=== PATIENT | male | born 1970 | race Caucasian/White ===

== ENCOUNTER 2024-03-05 20:13 | Inpatient (IN) ==
[2024-03-05 21:00] LABS: Basophils # (auto) 0.14 K/uL (0.00-0.20); Basophils % (auto) 1.5 %; Eosinophils # (auto) 0.51 K/uL (0.00-0.50); Eosinophils % (auto) 5.6 %; Hematocrit (blood only) 43.9 % (42.0-52.0); Hemoglobin 14.9 g/dl (14.0-18.0); Immature Granulocytes # (auto) 0.02 K/uL (0.01-0.20); Immature Granulocytes % (auto) 0.2 %; Lymphocytes # (auto) 2.73 K/uL (1.20-3.40); Mean Corpuscular Hemoglobin 29.4 pg (25.0-34.0); Mean Corpuscular Hgb Conc 33.9 g/dL (32.0-36.0); Mean Corpuscular Volume 86.8 fL (80.0-100.0); Mean Platelet Volume 9.4 fL (9.4-12.4); Monocytes # (auto) 0.74 K/uL (0.11-0.59); Monocytes % (auto) 8.1 %; Neutrophils # (auto) 4.95 K/uL (1.40-6.50); Neutrophils % (auto) 54.6 %; Platelet Count 340 K/uL (130-400); RDW Coefficient of Variation 13.2 % (11.5-14.5); RDW Standard Deviation 41.2 fL (36.4-46.3); Red Blood Count 5.06 M/uL (4.70-6.10); White Blood Count 9.09 K/ul (4.8-10.8)
[2024-03-05 21:15] LABS: Albumin Globulin Ratio 1.7 (0.9-2); Albumin Level 4.1 gm/dl (3.4-5.0); BUN Creatinine Ratio 9.3 (10-20); Bilirubin,Total 0.4 mg/dl (0.2-1.0); Calcium 9.5 mg/dl (8.6-10.3); Creatinine Clr Calc Pharmacy 96.8 ml/min; Est GFR (African American) 114.7 ml/min; Globulin 2.4 gm/dl (2.5-4.0); Potassium 3.9 mmol/L (3.5-5.1); Total Protein 6.5 gm/dl (6.0-8.3)
[2024-03-05 21:20] LABS: Troponin I High Sensitivity 10.4 pg/ml (0-20)
--- NOTE | 2024-03-05 22:05 | Emergency Department Note ---
Impression & Plan Chest pain ED Provider Note CHIEF COMPLAINT: Chest pain x 1 week HISTORY OF PRESENT ILLNESS: This 53-year-old male patient presents to the emergency department via private vehicle for evaluation of chest pain. This has been intermittent but ongoing for about a week. Patient states that the pain today worsened at lunchtime. He states he had mashed potatoes, chicken, corn for lunch with his daughter. He states shortly thereafter, he developed a pressure sensation in the left side of his chest which does radiate into the left arm. He states he feels that food sometimes gets stuck in his chest, but he has not had any difficulty eating or drinking since this started. He was seen by Dr. Lawler a week ago and was started on omeprazole which she does not feel is making much of a difference. 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 He states there have been some instances of chest pain when walking up hills or doing some exertion, but at baseline he feels that he is in decent physical condition. The patient notes that he has not recently been ill. There has been no cough or congestion. He has not taken any OTC medication for his pain. He denies any history of hypertension, hyperlipidemia, heart disease. He denies any known family history of heart disease. REVIEW OF SYSTEMS: A 10 system review of systems was performed with positives and pertinent negatives listed in the history of present illness. All other systems were reviewed and are negative. ALLERGIES: NKDA PHYSICAL EXAM: VITALS: Vitals are noted on the nurse's note and reviewed by myself. Vital signs stable. GENERAL: This is a 53-year-old male, in no acute distress, nondiaphoretic, well- developed well-nourished. SKIN: The skin was without rashes, erythema, edema, or bruising. There is no tenting of the skin. Capillary refill less than 2 seconds. HEAD: Normocephalic atraumatic. EARS: External auditory canals clear, tympanic membranes pearly marino without erythema or effusion bilaterally. No hemotympanum. Negative sawyer sign EYES: Pupils equal round and reactive to light and accommodation. Conjunctivae without injection, sclerae without icterus. Extraocular movements intact. NOSE: Patent, turbinates without inflammation or discharge. No sinus tenderness. MOUTH: Mucous membranes moist. Tonsils are not enlarged. Pharynx without erythema or exudate. Uvula midline. Airway patent. Tongue does not deviate. NECK: Supple without nuchal rigidity. No lymphadenopathy. Cervical spine is nontender. No JVD. HEART: Regular rate and rhythm without murmurs gallops or rubs. LUNGS: Clear to auscultation bilaterally without wheezes, rales or rhonchi. No retractions or accessory muscle use. ABDOMEN: Positive bowel sounds x 4. Soft, nontender, without masses or organomegaly. Louis sign negative. No guarding or rebound tenderness. MUSCULOSKELETAL: No muscle atrophy, erythema, or edema noted. Full range of motion without joint tenderness in all extremities. No tenderness to palpation. Normal gait. Strength 5/5 throughout. NEURO: Patient was alert and oriented to person place and time. Normal sensation to light and sharp touch. Deep tendon reflexes 2+ throughout. No focal neurological deficits. 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 The monitor showed a normal sinus rhythm at a ventricular rate of 61 bpm, per my interpretation. EKG was reviewed by myself and found to be normal sinus rhythm at a rate of 74 beats per minute and per my interpretation reveals no ST elevation or depression. No T wave inversion. No prior EKG available for comparison. EKG completed approximately 2 hours later was without acute changes. Chest x-ray. Findings: A chest x-ray was performed and revealed no pneumothorax, effusion, infiltrate, pulmonary edema, free air under the diaphragm, or wide mediastinum, per my interpretation. EMERGENCY DEPARTMENT COURSE: The patient was seen and evaluated as above. The patient presents for to the emergency department for chest pain. This has been ongoing for about a week. The pain does seem to be worse with exertion, but is present most of the time. Today, he developed the pain after eating lunch. The access was obtained, labs were drawn. Labs were reviewed. Per my interpretation, there was no leukocytosis or anemia. No thrombocytopenia. Renal, hepatic function and electrolytes without significant abnormality. Troponin x 2 negative. Lipase 91. Chest x-ray as above. Per my interpretation, no acute findings. I discussed findings with the patient at bedside. He discussed case with my attending physician. Heart score is 2. Given the patient's complaints of pressure sensation in his chest, worse with exertion, I did recommend admission/observation to further evaluate this chest pain. I do feel the patient would benefit from inpatient care additional studies to rule out cardiac disease. The patient was agreeable with the treatment plan. I discussed the case with Dr. Hopkins, [facility] hospitalist physician. He did agree to see and evaluate the patient for admission. Please see hospitalist dictation regarding ongoing management and care of this patient. Case was discussed with the attending physician. This visit is during a period of high volume and high acuity in the emergency department. I attest that I have personally reviewed the patient medication list. I attest that I have reviewed the patient's blood pressure and it was found to be normal GCS: 15 In the evaluation and treatment of this patient the following differential diagnoses were entertained: Cardiac ischemia, aortic dissection, pulmonary embolism, pneumothorax, pneumonia, pericarditis, myocarditis, esophageal rupture, GERD, cholecystitis, pancreatitis, musculoskeletal, as well as other pathologies. The chart was completed utilizing [employer] Speech voice recognition software. Grammatical errors, random word insertions, pronoun errors, and incomplete sentences are an occasional consequence of this system due to software limitations, ambient noise, and hardware issues. Any formal questions or concerns about the content, text, or information contained within the body of this dictation should be directly addressed to the provider for clarification. Past Med/Surg History Problem List (Updated 03/06/24 @ 02:55 by Mckayla Garza PA-C) Chest pain (Acute) Medical History No pertinent past medical history Social History Smoking Status: Never smoker Feels Safe at Home: Yes Allergies Allergies Allergy/AdvReac Type Severity Reaction Status Date / Time No Known Allergies Allergy Mild Unverified 03/06/24 01:41 Home Meds Home Medications Medication Instructions Recorded Confirmed cholecalciferol (vitamin D3) 25 0 mcg PO DAILY 03/06/24 03/06/24 mcg (1,000 unit) tablet (Vitamin D3) omeprazole 20 mg tablet,delayed 0 mg PO DAILY 03/06/24 03/06/24 release Results & Data (ED) Vital Signs Vital Signs - 24 hr 03/05/24 20:17 03/05/24 20:35 03/05/24 20:36 Temperature 35.9 C L Temperature Source Skin Pulse Rate 81 75 Pulse Rate [Apical] Pulse Rate from SpO2 Sensor Respiratory Rate 16 Respiratory Effort / Characteristics Non-Labored Respiratory Depth Normal Respiratory Pattern Blood Pressure 111/78 Blood Pressure [Right Arm] Blood Pressure Mean 89 Blood Pressure Mean [Right Arm] Pulse Oximetry 96 99 Oxygen Delivery Method Room Air Room Air Sepsis Recent Fever Within 48 Hours No Sepsis New/Unexplained Change in Mental Status No Sepsis Action Taken by Nursing No Action Required 03/05/24 20:42 03/05/24 20:57 03/05/24 21:00 Temperature Temperature Source Pulse Rate 72 71 Pulse Rate [Apical] Pulse Rate from SpO2 Sensor 72 70 Respiratory Rate 20 13 Respiratory Effort / Characteristics Respiratory Depth Respiratory Pattern Blood Pressure 103/68 Blood Pressure [Right Arm] Blood Pressure Mean 74 Blood Pressure Mean [Right Arm] Pulse Oximetry 94 96 Oxygen Delivery Method Sepsis Recent Fever Within 48 Hours Sepsis New/Unexplained Change in Mental Status Sepsis Action Taken by Nursing 03/05/24 21:00 03/05/24 21:09 03/05/24 21:27 Temperature Temperature Source Pulse Rate 70 67 Pulse Rate [Apical] Pulse Rate from SpO2 Sensor 69 68 Respiratory Rate 17 19 Respiratory Effort / Characteristics Respiratory Depth Respiratory Pattern Blood Pressure 103/68 Blood Pressure [Right Arm] Blood Pressure Mean 74 Blood Pressure Mean [Right Arm] Pulse Oximetry 95 94 Oxygen Delivery Method Sepsis Recent Fever Within 48 Hours Sepsis New/Unexplained Change in Mental Status Sepsis Action Taken by Nursing 03/05/24 21:30 03/05/24 21:30 03/05/24 22:12 Temperature Temperature Source Pulse Rate 65 Pulse Rate [Apical] Pulse Rate from SpO2 Sensor Respiratory Rate 11 L Respiratory Effort / Characteristics Respiratory Depth Respiratory Pattern Blood Pressure 96/70 L 96/70 L 122/76 Blood Pressure [Right Arm] Blood Pressure Mean 76 76 91 Blood Pressure Mean [Right Arm] Pulse Oximetry Oxygen Delivery Method Sepsis Recent Fever Within 48 Hours Sepsis New/Unexplained Change in Mental Status Sepsis Action Taken by Nursing 03/06/24 00:00 03/06/24 00:31 03/06/24 02:00 Temperature Temperature Source Pulse Rate 61 Pulse Rate [Apical] 66 61 Pulse Rate from SpO2 Sensor Respiratory Rate 14 12 Respiratory Effort / Characteristics Non-Labored Spontaneous Non-Labored Spontaneous Respiratory Depth Normal Normal Respiratory Pattern Regular Blood Pressure Blood Pressure [Right Arm] 105/69 99/65 L Blood Pressure Mean Blood Pressure Mean [Right Arm] 81 76 Pulse Oximetry 96 96 Oxygen Delivery Method Room Air Room Air Sepsis Recent Fever Within 48 Hours Sepsis New/Unexplained Change in Mental Status Sepsis Action Taken by Nursing Laboratory Data 03/05/24 20:25 03/05/24 20:25 Lab Results 03/05/24 03/05/24 Range/Units 20:25 23:07 WBC 9.09 (4.8-10.8) K/ul RBC 5.06 (4.70-6.10) M/uL Hgb 14.9 (14.0-18.0) g/dl Hct 43.9 (42.0-52.0) % MCV 86.8 (80.0-100.0) fL MCH 29.4 (25.0-34.0) pg MCHC 33.9 (32.0-36.0) g/dL RDW Std Deviation 41.2 (36.4-46.3) fL RDW Coeff of Ana 13.2 (11.5-14.5) % Plt Count 340 (130-400) K/uL MPV 9.4 (9.4-12.4) fL Immature Gran % (Auto) 0.2 % Neut % (Auto) 54.6 % Lymph % (Auto) 30.0 % [place] % (Auto) 8.1 % Eos % (Auto) 5.6 % Baso % (Auto) 1.5 % Neut # (Auto) 4.95 (1.40-6.50) K/uL Lymph # (Auto) 2.73 (1.20-3.40) K/uL [place] # (Auto) 0.74 H (0.11-0.59) K/uL Eos # (Auto) 0.51 H (0.00-0.50) K/uL Baso # (Auto) 0.14 (0.00-0.20) K/uL Immature Gran # (Auto) 0.02 (0.01-0.20) K/uL Sodium 137 (136-145) mmol/L Potassium 3.9 (3.5-5.1) mmol/L Chloride 104 (98-107) mmol/L Carbon Dioxide 28 (21-32) mmol/L Anion Gap 5 (3-11) BUN 8 (6-23) mg/dl Creatinine 0.86 (0.6-1.4) mg/dl Est Cr Clr Drug Dosing 96.8 ml/min Est GFR ( Amer) 114.7 ml/min Est GFR (Non-Af Amer) 99.0 ml/min BUN/Creatinine Ratio 9.3 L (10-20) Glucose 88 (70-99(Fasting)) mg/dl Calcium 9.5 (8.6-10.3) mg/dl Total Bilirubin 0.4 (0.2-1.0) mg/dl AST 12 L (13-39) U/L ALT 11 (7-52) U/L Alkaline Phosphatase 43 (34-104) U/L Troponin I High Sens 10.4 < 2.3 D (0-20) pg/ml Total Protein 6.5 (6.0-8.3) gm/dl Albumin 4.1 (3.4-5.0) gm/dl Globulin 2.4 L (2.5-4.0) gm/dl Albumin/Globulin Ratio 1.7 (0.9-2) Lipase 91 H (11-82) U/L Discharge Plan Visit Data Chief Complaint: Chest Pain Stated Complaint: CHEST HEAVY/PAIN, DOWN LT ARM ED Provider: Tarun Carmona ED Midlevel Provider: Mckayla Garza Discharge Problem: Chest pain Patient Disposition: Admitted As Inpatient Forms [facility] Prescriptions Prescriptions: No Action cholecalciferol (vitamin D3) [Vitamin D3] 25 mcg (1,000 unit) Tablet 0 mcg PO DAILY omeprazole 20 mg Tablet,Delayed Release (Dr/Ec) 0 mg PO DAILY Referrals Referrals: PCP,NO [Primary Care Provider] -
--- NOTE | 2024-03-06 02:29 | History & Physical Report ---
Date of Service March 06, 2024 Assessment & Plan (1) Chest pain: Plan: 53-year-old male with no significant past medical history and not been to doctors for long time presents with chest pain. Patient states he is having chest pain for about a week. Feeling of chest heaviness and some left sided chest pain. Since September he is also having food getting stuck in the esophagus. Today after lunch he felt food got stuck and drank water but still felt food was in the esophagus as he had some back discomfort and since then is having left-sided chest pain and heaviness and was not getting better so he came to the ER today. Currently chest discomfort is better but still there. Denies any shortness of breath. Denies any headache. No fevers. No cough. No runny nose or sore throat. No nausea. No abdominal pain. Normal bowel and bladder movements. Patient states at work in this summer one time when he was climbing a hill felt some chest heaviness but it was only one episode. Currently resting comfortably and hemodynamically stable. Chest pain Chest heaviness and left-sided chest pain Going on for about a week Had episode when he climbed hill at work 2 sets of troponin negative and EKG okay Will follow serial cardiac enzymes and echo N.p.o. Telemetry Will also follow HbA1c and lipid profile as patient not been to doctors for long time Cardiology consult in a.m. for further recommendations Dysphagia Patient says his food getting stuck in his esophagus for some time now IV Pepcid GI consult DVT prophylaxis SCDs Disposition Observation telemetry Full code. History of Present Illness Chief Complaint: Chest pain Primary Care Provider: NO PCP 53-year-old male with no significant past medical history and not been to doctors for long time presents with chest pain. Patient states he is having chest pain for about a week. Feeling of chest heaviness and some left sided chest pain. Since September he is also having food getting stuck in the esophagus. Today after lunch he felt food got stuck and drank water but still felt food was in the esophagus as he had some back discomfort and since then is having left-sided chest pain and heaviness and was not getting better so he came to the ER today. Currently chest discomfort is better but still there. Denies any shortness of breath. Denies any headache. No fevers. No cough. No runny nose or sore throat. No nausea. No abdominal pain. Normal bowel and bladder movements. Patient states at work in this summer one time when he was climbing a hill felt some chest heaviness but it was only one episode. Currently resting comfortably and hemodynamically stable. Past medical history. None as per patient. Past surgical history. None as per patient Social history. No smoking. No alcohol. No drug use as per patient. Family history. No significant family history as per patient. Allergies Allergy/AdvReac Type Severity Reaction Status Date / Time No Known Allergies Allergy Mild Unverified 03/06/24 01:41 Home Medications Medication Instructions Recorded Confirmed Type cholecalciferol (vitamin D3) 25 0 mcg PO DAILY 03/06/24 03/06/24 History mcg (1,000 unit) tablet (Vitamin D3) omeprazole 20 mg tablet,delayed 0 mg PO DAILY 03/06/24 03/06/24 History release Past Med/Surg History Problem List (Updated 03/06/24 @ 02:55 by Mckayla Garza PA-C) Chest pain (Acute) Medical History No pertinent past medical history Social History Smoking Status: Never smoker Hx Alcohol Use: Yes Alcohol type: beer Hx Substance Use: No Preferred Language: [place] Communication Ability: Effective Electronic Publishing Specialist Required: No Beliefs That Will Affect Care: None Current Living Situation: Family Feels Safe at Home: Yes Safety Concerns: Feels Safe At This Time Assistive Devices: Denture - Upper and Glasses Review of Systems Review of Systems: All systems reviewed & are unremarkable except as noted in HPI & below Physical Exam Physical Exam: General- not in distress Head- atraumatic Eyes- PERRL. ENT- oropharynx clear Neck- supple, no JVD. Lungs- clear to auscultation no wheezing or crackles Heart- regular rate and rhythm; no murmur, no gallop. Abdomen- normal bowel sounds, soft, nontender, no distension. Extremities- no pretibial edema, no erythema seen. Neuro- alert, oriented PERRL,no facial palsy; no dysarthria; moves extremities Results & Data Results & Data Vital Signs (Past 12 Hours) Vital Signs Temp Pulse Pulse Resp BP BP Pulse Ox 03/06/24 02:00 61 12 99/65 L 96 03/06/24 00:31 61 03/06/24 00:00 66 14 105/69 96 03/05/24 22:12 65 11 L 122/76 03/05/24 21:30 96/70 L 03/05/24 21:30 96/70 L 03/05/24 21:27 67 19 94 03/05/24 21:09 70 17 95 03/05/24 21:00 103/68 03/05/24 21:00 103/68 03/05/24 20:57 71 13 96 03/05/24 20:42 72 20 94 03/05/24 20:36 99 03/05/24 20:35 75 03/05/24 20:17 35.9 C L 81 16 111/78 96 O2 Del Method 03/06/24 02:00 Room Air 03/06/24 00:31 03/06/24 00:00 Room Air 03/05/24 22:12 03/05/24 21:30 03/05/24 21:30 03/05/24 21:27 03/05/24 21:09 03/05/24 21:00 03/05/24 21:00 03/05/24 20:57 03/05/24 20:42 03/05/24 20:36 Room Air 03/05/24 20:35 03/05/24 20:17 Room Air Diagnostic Findings Laboratory Results WBC 9.09 K/ul (4.8-10.8) 03/05/24 20:25 RBC 5.06 M/uL (4.70-6.10) 03/05/24 20:25 Hgb 14.9 g/dl (14.0-18.0) 03/05/24 20:25 Hct 43.9 % (42.0-52.0) 03/05/24 20:25 MCV 86.8 fL (80.0-100.0) 03/05/24 20:25 MCH 29.4 pg (25.0-34.0) 03/05/24 20:25 MCHC 33.9 g/dL (32.0-36.0) 03/05/24 20:25 RDW Std Deviation 41.2 fL (36.4-46.3) 03/05/24 20:25 RDW Coeff of Ana 13.2 % (11.5-14.5) 03/05/24 20: Plt Count 340 K/uL (130-400) 03/05/24 20: MPV 9.4 fL (9.4-12.4) 03/05/24 20: Immature Gran % (Auto) 0.2 % 03/05/24 20: Neut % (Auto) 54.6 % 03/05/24 20: Lymph % (Auto) 30.0 % 03/05/24 20: [place] % (Auto) 8.1 % 03/05/24 20: Eos % (Auto) 5.6 % 03/05/24: Baso % (Auto) 1.5 % 03/05/24: Neut # (Auto) 4.95 K/uL (1.40-6.50) 03/05/24: Lymph # (Auto) 2.73 K/uL (1.20-3.40) 03/05/24 20: [place] # (Auto) 0.74 K/uL (0.11-0.59) H 03/05/24 20:25 Eos # (Auto) 0.51 K/uL (0.00-0.50) H 03/05/24 20: Baso # (Auto) 0.14 K/uL (0.00-0.20) 03/05/24 20: Immature Gran # (Auto) 0.02 K/uL (0.01-0.20) 03/05/24 20: Sodium 137 mmol/L (136-145) 03/05/24 20: Potassium 3.9 mmol/L (3.5-5.1) 03/05/24 20: Chloride 104 mmol/L (98-107) 03/05/24 20: Carbon Dioxide 28 mmol/L (21-32) 03/05/24 20: Anion Gap 5 (3-11) 03/05/24 20:25 BUN 8 mg/dl (6-23) 03/05/24: Creatinine 0.86 mg/dl (0.6-1.4) 03/05/24: Est Cr Clr Drug Dosing 96.8 ml/min 08/04/24 20:25 Est GFR ( Amer) 114.7 ml/min 03/05/24 20:25 Est GFR (Non-Af Amer) 99.0 ml/min 03/05/24 20:25 BUN/Creatinine Ratio 9.3 (10-20) L 03/05/24 20:25 Glucose 88 mg/dl (70-99(Fasting)) 03/05/24 20:25 Calcium 9.5 mg/dl (8.6-10.3) 03/05/24 20:25 Total Bilirubin 0.4 mg/dl (0.2-1.0) 03/05/24 20:25 AST 12 U/L (13-39) L 03/05/24 20:25 ALT 11 U/L (7-52) 03/05/24 20:25 Alkaline Phosphatase 43 U/L (34-104) 03/05/24 20:25 Troponin I High Sens < 2.3 pg/ml (0-20) D 03/05/24 23:07 Total Protein 6.5 gm/dl (6.0-8.3) 03/05/24 20:25 Albumin 4.1 gm/dl (3.4-5.0) 03/05/24 20:25 Globulin 2.4 gm/dl (2.5-4.0) L 03/05/24 20:25 Albumin/Globulin Ratio 1.7 (0.9-2) 03/05/24 20:25 Lipase 91 U/L (11-82) H 03/05/24 20:25 ECG Additional Comments: ECG normal sinus rhythm rate of 74. No acute ST changes seen. Code Status & VTE Plan VTE Prophylaxis Plan VTE Prophylaxis will be ordered: Yes
[2024-03-06] MEDS ORDERED: NITROGLYCERIN SL 0.4 MG/TAB TAB SL PRN (03:14)
[2024-03-06] MEDS ORDERED: POLYETHYLENE (MIRALAX) 17 GM PACK PO PRN (03:14)
[2024-03-06] MEDS ORDERED: ACETAMINOPHEN 325 MG TAB PO PRN (03:14)
[2024-03-06] MEDS: FAMOTIDINE 20MG IV PUSH 20 MG/5 ML SYR IV STA (04:00)
[2024-03-06] MEDS: SODIUM CHLORIDE 0.9% 1,000 ML IV SCH (04:00)
[2024-03-06 05:13] LABS: Anion Gap 6 (3-11); BUN Creatinine Ratio 9.1 (10-20); Blood Urea Nitrogen 7 mg/dl (6-23); Calcium 9.1 mg/dl (8.6-10.3); Carbon Dioxide 28 mmol/L (21-32); Chloride 105 mmol/L (98-107); Chol HDL Ratio 7.4 (0-5); Cholesterol 253 mg/dl (0-200); Creatinine Clr Calc Pharmacy 108.2 ml/min; Est GFR (African American) 120.1 ml/min; Est GFR (Non-African American) 103.6 ml/min; Glucose 91 mg/dl (70-99(Fasting)); HDL Cholesterol 34 mg/dl; LDL Cholesterol Calculated 159 mg/dl; Magnesium 2.1 mg/dl (1.7-2.4); Potassium 3.9 mmol/L (3.5-5.1); Sodium 139 mmol/L (136-145); Triglycerides 300 mg/dl (0-150); VLDL Cholesterol 60 mg/dl (0-30)
[2024-03-06 05:19] LABS: Troponin I High Sensitivity < 2.3 pg/ml (0-20)
[2024-03-06 05:24] LABS: Basophils # (auto) 0.14 K/uL (0.00-0.20); Basophils % (auto) 1.7 %; Eosinophils # (auto) 0.52 K/uL (0.00-0.50); Eosinophils % (auto) 6.3 %; Hemoglobin 14.5 g/dl (14.0-18.0); Immature Granulocytes # (auto) 0.02 K/uL (0.01-0.20); Immature Granulocytes % (auto) 0.2 %; Lymphocytes # (auto) 2.21 K/uL (1.20-3.40); Lymphocytes % (auto) 26.6 %; Mean Corpuscular Hemoglobin 28.8 pg (25.0-34.0); Mean Corpuscular Hgb Conc 33.7 g/dL (32.0-36.0); Mean Corpuscular Volume 85.5 fL (80.0-100.0); Mean Platelet Volume 9.4 fL (9.4-12.4); Monocytes # (auto) 0.68 K/uL (0.11-0.59); Monocytes % (auto) 8.2 %; Neutrophils # (auto) 4.74 K/uL (1.40-6.50); Platelet Count 293 K/uL (130-400); RDW Coefficient of Variation 13.1 % (11.5-14.5); RDW Standard Deviation 40.7 fL (36.4-46.3); Red Blood Count 5.03 M/uL (4.70-6.10); White Blood Count 8.31 K/ul (4.8-10.8)
--- NOTE | 2024-03-06 07:11 | XRay Report ---
XR chest 1V portable HISTORY: Chest pain, nonspecific COMPARISON: Chest 07/27/2006. FINDINGS: Calcified granuloma within the left lung base. Otherwise, the lungs are clear. The heart re nnamdi top normal in size. No pleural effusions. No pneumothorax. No acute fractures. No evidence for pulmonary edema. IMPRESSION: No acute process. ACT 112: Negative or not required by law. Electronically signed by: Mickey Ceballos M.D. 03/06/2024 7:10 AM
[2024-03-06 07:20] LABS: Estimated Average Glucose 114 mg/dl; Hemoglobin A1C 5.6 % (4.5-5.6)
--- NOTE | 2024-03-06 07:20 | Electrocardiogram Report ---
Test Reason : Blood Pressure : / mmHG Vent. Rate : 074 BPM Atrial Rate : 074 BPM P-R Int : 152 ms QRS Dur : 086 ms QT Int : 354 ms P-R-T Axes : 006 008 -12 degrees QTc Int : 392 ms Normal sinus rhythm Normal ECG No previous ECGs available Confirmed by Camron Calloway ([id number]) on 03/06/2024 7:20:18 AM Referred By: Confirmed By:Stephen Calloway
--- NOTE | 2024-03-06 07:24 | Electrocardiogram Report ---
Test Reason : Blood Pressure : / mmHG Vent. Rate : 065 BPM Atrial Rate : 065 BPM P-R Int : 150 ms QRS Dur : 094 ms QT Int : 382 ms P-R-T Axes : 003 023 006 degrees QTc Int : 397 ms Normal sinus rhythm Normal ECG When compared with ECG of 05-MAR-2024 20:22, (unconfirmed) No significant change was found Confirmed by Camron Calloway ([id number]) on 03/06/2024 7:23:40 AM Referred By: REFERRED SELF Confirmed By:Stephen Calloway
--- NOTE | 2024-03-06 09:22 | Cardiology Consultation ---
Date of Consultation March 06, 2024 Assessment & Plan (1) Dysphagia: (2) Chest pain at rest: (3) Dyslipidemia: Plan 53-year-old male admitted on March 05, 2024, evaluation of chest pain at rest. Discomfort, by history, is atypical, most suggestive of GI etiology. EKG without acute change. High-sensitivity troponin negative. Chest x-ray clear. Telemetry benign. Options of management discussed. Recommend referral for stress testing to evaluate chest discomfort as well as for preoperative evaluation prior to EGD. Supervising Physician Co-Signing Physician Notes Supervising Physician Attestation: I have personally performed a history and physical examination on the patient. I agree with the physician assistant administrator's findings and plan as documented with the following additions. Patient underwent exercise stress echocardiogram. The patient's baseline symptoms of chest pressure at rest did not change with graded exercise. No EKG or echocardiographic evidence of inducible ischemia. Stress test is felt to represent a low risk of underlying hemodynamically significant coronary heart disease. Recommend initiation of atorvastatin for cardiac risk factor optimization. Recommend ongoing evaluation for possible GI explanation of the patient's symptoms. I spent a total of 25 minutes on the date of service in preparation, delivery, and documentation of the care provided to this patient, excluding any time spent in the performance of separately billed services. Douglas Gates, History of Present Illness Reason for Consultation: Chest pain Requesting Physician: Dr. Hopkins Attending Physician: Dr. Jerry MD History of Present Illness Mr. Bart Bingham is a very pleasant 53-year-old male who presented to the [facility] ER on March 05, 2024 for evaluation of chest pain. Patient notes that he has had dysphagia since September 2023. He notes that everything he eats he feels in his chest. Approximately 1 week ago he developed some heaviness in the chest that seemed to also be present down the left axilla area. The pain is constant. No aggravating or alleviating factors identified. The discomfort does not worsen with activity. Approximately 1 week ago he saw Dr. Lawler and was prescribed omeprazole which seem to have may be helped a little bit. This past Wednesday he went out for breakfast and ate sausage which caused extreme discomfort stating "It got the tears rolling. It takes the pleasure out of eating." EKG on presentation revealed normal sinus rhythm at [address]-T segment change. High-sensitivity troponin negative x 3 (10.4, less than 2.3, less than 2.3). Chest x-ray without acute process. ER telemetry benign. Past Medical and Surgical History: Dyslipidemia. Family History: Mother is alive in her 70s previously suffering a TIA. Father is alive in his 70s without cardiac issues. Patient notes having 4 brothers and 3 sisters, all in relatively good health. 1 brother drowned at the age of 18 Social History: Never smoker. No smokeless tobacco. No alcohol. 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 passed in September 2023 at the age of 58 with congestive heart failure, cancer at the age of 17. 2 children, 21-year-old daughter and 18-year-old son both live with him. Allergies Allergy/AdvReac Type Severity Reaction Status Date / Time No Known Allergies Allergy Mild Unverified 03/06/24 01:41 Home Medications Medication Instructions Recorded Confirmed Type cholecalciferol (vitamin D3) 25 0 mcg PO DAILY 03/06/24 03/06/24 History mcg (1,000 unit) tablet (Vitamin D3) omeprazole 20 mg tablet,delayed 0 mg PO DAILY 03/06/24 03/06/24 History release Patient History Medical History No pertinent past medical history Social History Smoking Status: Never smoker Hx Alcohol Use: Yes Alcohol type: beer Hx Substance Use: No Preferred Language: Japanese Communication Ability: Effective 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 HEENT: No history of cataracts, macular degeneration, or glaucoma. No history of amaurosis fugax. Pulmonary: No history of asthma, emphysema, COPD, or sleep apnea. No history of PE. Cardiac: No history of CAD, MS, CHF, arrhythmia, heart murmur, rheumatic fever, or scarlet fever GI/Abd: + Dysphagia since September 2023. +GERD. No melana or hematochezia. No kidney problems. No liver problems. No history of pancreatic issues. Vascular: No history of carotid artery disease, AAA, or lower extremity claudication/PAD. Hematologic: No coagulation disorder, anemia, or abnormal bleeding. Musculoskeletal: Negative. Skin: No rash. Neurologic: No history of TIA/CVA, or seizure disorder. Male : Negative. Endocrine: No history of diabetes mellitus. No thyroid trouble. Complete Review of Systems is as stated above, negative, or noncontributory Physical Exam Physical Exam: General: A&Ox3. NAD. HENT: Normocephalic. Atraumatic. Eyes: PER. Conjunctiva pink, sclera clear. Neck: No carotid bruits. No JVD. No HJR. Heart: RRR. Grade I/ systolic murmur at the LLSB. No rub. No gallop. PMI is nondisplaced. Lungs: Clear to auscultation. Abdomen: +BS. Soft. Nontender. No masses or organomegaly. Extremities: No clubbing, cyanosis, or edema. Limited neurological examination is without focal deficits. Pulses: radial=2/4, posterior tibial=2/4. Results & Data Vital Signs (Past 12 Hours) Vital Signs Pulse Pulse Resp BP BP Pulse Ox Pulse Ox 03/06/24 07:47 66 16 111/67 03/06/24 06:15 63 18 111/67 95 03/06/24 05:00 55 L 16 03/06/24 04:30 60 15 03/06/24 04:02 96 03/06/24 03:30 114/79 03/06/24 03:24 67 24 03/06/24 03:20 116/78 03/06/24 03:20 116/78 03/06/24 03:19 66 14 116/78 96 03/06/24 03:03 64 18 94 03/06/24 03:00 111/75 03/06/24 02:42 60 17 94 03/06/24 02:30 107/69 03/06/24 02:18 67 22 94 03/06/24 02:00 99/65 L 03/06/24 02:00 99/65 L 03/06/24 02:00 99/65 L 03/06/24 02:00 62 16 03/06/24 02:00 61 12 99/65 L 96 03/06/24 01:30 112/76 03/06/24 01:30 112/76 03/06/24 01:21 65 16 03/06/24 01:03 64 16 03/06/24 01:00 116/72 03/06/24 01:00 116/72 03/06/24 01:00 116/72 03/06/24 00:45 62 20 03/06/24 00:31 61 03/06/24 00:30 110/62 03/06/24 00:30 110/62 03/06/24 00:21 61 17 03/06/24 00:09 62 20 93 03/06/24 00:00 66 14 105/69 96 03/05/24 23:30 108/67 03/05/24 23:30 108/67 03/05/24 23:09 65 18 03/05/24 23:00 59 L 16 03/05/24 23:00 112/64 03/05/24 22:12 65 11 L 122/76 03/05/24 21:30 96/70 L 03/05/24 21:30 96/70 L 03/05/24 21:27 67 19 94 O2 Del Method O2 Del Method 03/06/24 07:47 Room Air 03/06/24 06:15 Room Air 03/06/24 05:00 03/06/24 04:30 03/06/24 04:02 Room Air 03/06/24 03:30 03/06/24 03:24 03/06/24 03:20 03/06/24 03:20 03/06/24 03:19 Room Air 03/06/24 03:03 03/06/24 03:00 03/06/24 02:42 03/06/24 02:30 03/06/24 02:18 03/06/24 02:00 03/06/24 02:00 03/06/24 02:00 03/06/24 02:00 03/06/24 02:00 Room Air 03/06/24 01:30 03/06/24 01:30 03/06/24 01:21 03/06/24 01:03 03/06/24 01:00 03/06/24 01:00 03/06/24 01:00 03/06/24 00:45 03/06/24 00:31 03/06/24 00:30 03/06/24 00:30 03/06/24 00:21 03/06/24 00:09 03/06/24 00:00 Room Air 03/05/24 23:30 03/05/24 23:30 03/05/24 23:09 03/05/24 23:00 03/05/24 23:00 03/05/24 22:12 03/05/24 21:30 03/05/24 21:30 03/05/24 21:27 Laboratory Results Cardiac Enzymes 03/05/24 03/05/24 03/06/24 Range/Units 20:25 23:07 04:35 AST 12 L (13-39) U/L Troponin I High Sens 10.4 < 2.3 D < 2.3 (0-20) pg/ml Lipids 03/06/24 Range/Units 04:35 Triglycerides 300 H (0-150) mg/dl Cholesterol 253 H (0-200) mg/dl HDL Cholesterol 34 mg/dl Cholesterol/HDL Ratio 7.4 H (0-5) CBC 03/05/24 03/06/24 Range/Units 20:25 04:35 WBC 9.09 8.31 (4.8-10.8) K/ul RBC 5.06 5.03 (4.70-6.10) M/uL Hgb 14.9 14.5 (14.0-18.0) g/dl Hct 43.9 43.0 (42.0-52.0) % Plt Count 340 293 (130-400) K/uL Neut # (Auto) 4.95 4.74 (1.40-6.50) K/uL Lymph # (Auto) 2.73 2.21 (1.20-3.40) K/uL [place] # (Auto) 0.74 H 0.68 H (0.11-0.59) K/uL Eos # (Auto) 0.51 H 0.52 H (0.00-0.50) K/uL Baso # (Auto) 0.14 0.14 (0.00-0.20) K/uL Comprehensive Metabolic Panel 03/05/24 03/06/24 Range/Units 20:25 04:35 Sodium 137 139 (136-145) mmol/L Potassium 3.9 3.9 (3.5-5.1) mmol/L Chloride 104 105 (98-107) mmol/L Carbon Dioxide 28 28 (21-32) mmol/L BUN 8 7 (6-23) mg/dl Creatinine 0.86 0.77 (0.6-1.4) mg/dl Glucose 88 91 (70-99(Fasting)) mg/dl Calcium 9.5 9.1 (8.6-10.3) mg/dl AST 12 L (13-39) U/L ALT 11 (7-52) U/L Alkaline Phosphatase 43 (34-104) U/L Total Protein 6.5 (6.0-8.3) gm/dl Albumin 4.1 (3.4-5.0) gm/dl Intake and Output 03/05/24 03/06/24 03/06/24 22:59 06:59 14:59 Other: Weight 76.6 kg 76.6 kg Weight Measurement Method Chair Scale Chair Scale
[2024-03-06] MEDS: FAMOTIDINE 20MG IV PUSH 20 MG/5 ML SYR IV SCH (09:31)
[2024-03-06] MEDS: ATORVASTATIN 40 MG TAB PO SCH (10:02)
--- NOTE | 2024-03-06 10:34 | Communication Note ---
Date of Service: March 06, 2024 Evaluated at bedside Symptoms seem predominately with eating, even with water feels as if the fluid gets "caught" and is painful marked by pressure and tightness. Patient reports issues with liquids and solids Denies vomiting or gastritis like symptoms Work up negative to date for ischemic process at this time #Dysphagia #Chest pain, low concern for ACS Cards evaluated--stress testing today GI consulted for possible EGD given symptoms Rest of plan per HP
--- NOTE | 2024-03-06 11:43 | Gastrointestinal Consultation ---
Date of Consultation March 06, 2024 Assessment & Plan (1) Dysphagia: 53 year old male admitted through the ED w/ reports of solids dysphagia and chest pain, cardiac work up including EKG, High-sensitivity troponin and chest x-ray clear, ECHO pending. Pending results of ECHO, GI will consider inpatient EGD evaluation Soft, slippery diet today Can continue Pepcid Please maintain NPO status after midnight for tentative EGD 03/07 I spent a total of 45 minutes on the date of service in review of patient's record, and previously obtained information in person and appropriate medical visit, discussion and education of plan, with patient and/or caregiver, placing orders for tests/referral/procedures as medically necessary and documentation of pertinent clinical information in patient's medical records for their visit today. Supervising Physician Co-Signing Physician Notes 53 year old male without PMH who presents through the ED for evaluation of chest pain and dysphagia. GI was asked to evaluate. Pt was see [place] evaluated, chart reviewed. He notes sensation of solids sticking since September. This has progressively worsened and has now occurred daily with every attempt at oral intake. Suggests he develops chest pain/pressure after sensation of food sticking. + 20 lbs weight loss. stress echo negative. Will proceed with egd in am. NPO p mn. Stick to liquids today. DDX: mass vs stricture vs ring. EGD with biopsy +/- dilation in am. History of Present Illness Reason for Consultation: dysphagia Requesting Physician: Jerry Attending Physician: Barbie Edwards MD History of Present Illness 53 year old male without PMH who presents through the ED for evaluation of chest pain and dysphagia. GI was asked to evaluate. Pt was see [place] evaluated, chart reviewed. He notes sensation of solids sticking since September. This has progressively worsened and has now occurred daily with every attempt at oral intake. Suggests he develops chest pain/pressure after sensation of food sticking. Notes he has sensation of sticking mid sternum, which lasts a few minutes then drops. He suggests with liquid intake, will have painful swallowing but no dysphagia to liquids. Denies reflux/regurgitation. No issues with abd pain, nausea, vomiting. Moving bowels well. He has had about a 10 lb weight loss. No fever, chills, CP, SOB. Was seen by cardiology - EKG without acute change. High-sensitivity troponin negative. Chest x-ray clear. ECHO pending. CBC unremarkable LFTs unremarkable No abd imaging EGD: none Colonoscopy: none Allergies Allergy/AdvReac Type Severity Reaction Status Date / Time No Known Allergies Allergy Mild Unverified 03/06/24 01:41 Home Medications Medication Instructions Recorded Confirmed Type cholecalciferol (vitamin D3) 25 0 mcg PO DAILY 03/06/24 03/06/24 History mcg (1,000 unit) tablet (Vitamin D3) omeprazole 20 mg tablet,delayed 0 mg PO DAILY 03/06/24 03/06/24 History release Patient History Medical History No pertinent past medical history Social History Smoking Status: Never smoker Hx Alcohol Use: Yes Alcohol type: beer Hx Substance Use: No Preferred Language: Honduran Communication Ability: Effective 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 Physical Exam Constitutional: WD/WN, vitals as above Respiratory: normal respiratory effort, lungs clear to auscultation Cardiovascular: RRR, no murmur, no edema Gastrointestinal (Abdomen): normal bowel sounds, soft, nontender, no hepatosplenomegaly Skin: no rashes, warm and dry Results & Data Vital Signs (Past 12 Hours) Vital Signs Pulse Pulse Resp BP BP Pulse Ox Pulse Ox 03/06/24 10:00 80 22 96/64 L 99 03/06/24 09:00 75 23 133/85 97 03/06/24 07:47 66 16 111/67 03/06/24 06:15 63 18 111/67 95 03/06/24 05:00 55 L 16 03/06/24 04:30 60 15 03/06/24 04:02 96 03/06/24 03:30 114/79 03/06/24 03:24 67 24 03/06/24 03:20 116/78 03/06/24 03:20 116/78 03/06/24 03:19 66 14 116/78 96 03/06/24 03:03 64 18 94 03/06/24 03:00 111/75 08/05/24 02:42 60 17 94 03/06/24 02:30 107/69 03/06/24 02:18 67 22 94 03/06/24 02:00 99/65 L 03/06/24 02:00 99/65 L 03/06/24 02:00 99/65 L 03/06/24 02:00 62 16 03/06/24 02:00 61 12 99/65 L 96 03/06/24 01:30 112/76 03/06/24 01:30 112/76 03/06/24 01:21 65 16 03/06/24 01:03 64 16 03/06/24 01:00 116/72 03/06/24 01:00 116/72 03/06/24 01:00 116/72 03/06/24 00:45 62 20 03/06/24 00:31 61 03/06/24 00:30 110/62 03/06/24 00:30 110/62 03/06/24 00:21 61 17 03/06/24 00:09 62 20 93 03/06/24 00:00 66 14 105/69 96 O2 Del Method O2 Del Method 03/06/24 10:00 Room Air 03/06/24 09:00 Room Air 03/06/24 07:47 Room Air 03/06/24 06:15 Room Air 03/06/24 05:00 03/06/24 04:30 03/06/24 04:02 Room Air 03/06/24 03:30 03/06/24 03:24 03/06/24 03:20 03/06/24 03:20 03/06/24 03:19 Room Air 03/06/24 03:03 03/06/24 03:00 03/06/24 02:42 03/06/24 02:30 03/06/24 02:18 03/06/24 02:00 03/06/24 02:00 03/06/24 02:00 03/06/24 02:00 03/06/24 02:00 Room Air 03/06/24 01:30 03/06/24 01:30 03/06/24 01:21 03/06/24 01:03 03/06/24 01:00 03/06/24 01:00 03/06/24 01:00 03/06/24 00:45 03/06/24 00:31 03/06/24 00:30 03/06/24 00:30 03/06/24 00:21 03/06/24 00:09 03/06/24 00:00 Room Air Laboratory Results 03/06/24 03/05/24 03/05/24 Range/Units 04:35 23:07 20:25 WBC 8.31 9.09 (4.8-10.8) K/ul RBC 5.03 5.06 (4.70-6.10) M/uL Hgb 14.5 14.9 (14.0-18.0) g/dl Hct 43.0 43.9 (42.0-52.0) % MCV 85.5 86.8 (80.0-100.0) fL MCH 28.8 29.4 (25.0-34.0) pg MCHC 33.7 33.9 (32.0-36.0) g/dL RDW Std Deviation 40.7 41.2 (36.4-46.3) fL RDW Coeff of Ana 13.1 13.2 (11.5-14.5) % Plt Count 293 340 (130-400) K/uL MPV 9.4 9.4 (9.4-12.4) fL Immature Gran % (Auto) 0.2 0.2 % Neut % (Auto) 57.0 54.6 % Lymph % (Auto) 26.6 30.0 % Bailey % (Auto) 8.2 8.1 % Eos % (Auto) 6.3 5.6 % Baso % (Auto) 1.7 1.5 % Neut # (Auto) 4.74 4.95 (1.40-6.50) K/uL Lymph # (Auto) 2.21 2.73 (1.20-3.40) K/uL [place] # (Auto) 0.68 H 0.74 H (0.11-0.59) K/uL Eos # (Auto) 0.52 H 0.51 H (0.00-0.50) K/uL Baso # (Auto) 0.14 0.14 (0.00-0.20) K/uL Immature Gran # (Auto) 0.02 0.02 (0.01-0.20) K/uL Sodium 139 137 (136-145) mmol/L Potassium 3.9 3.9 (3.5-5.1) mmol/L Chloride 105 104 (98-107) mmol/L Carbon Dioxide 28 28 (21-32) mmol/L Anion Gap 6 5 (3-11) BUN 7 8 (6-23) mg/dl Creatinine 0.77 0.86 (0.6-1.4) mg/dl Est Cr Clr Drug Dosing 108.2 96.8 ml/min Est GFR ( Amer) 120.1 114.7 ml/min Est GFR (Non-Af Amer) 103.6 99.0 ml/min BUN/Creatinine Ratio 9.1 L 9.3 L (10-20) Glucose 91 88 (70-99(Fasting)) mg/dl Estimat Average Glucose 114 mg/dl Hemoglobin A1c 5.6 (4.5-5.6) % Calcium 9.1 9.5 (8.6-10.3) mg/dl Magnesium 2.1 (1.7-2.4) mg/dl Total Bilirubin 0.4 (0.2-1.0) mg/dl AST 12 L (13-39) U/L ALT 11 (7-52) U/L Alkaline Phosphatase 43 (34-104) U/L Troponin I High Sens < 2.3 < 2.3 D 10.4 (0-20) pg/ml Total Protein 6.5 (6.0-8.3) gm/dl Albumin 4.1 (3.4-5.0) gm/dl Globulin 2.4 L (2.5-4.0) gm/dl Albumin/Globulin Ratio 1.7 (0.9-2) Triglycerides 300 H (0-150) mg/dl Cholesterol 253 H (0-200) mg/dl LDL Cholesterol, Calc 159 mg/dl VLDL Cholesterol, Calc 60 H (0-30) mg/dl HDL Cholesterol 34 mg/dl Cholesterol/HDL Ratio 7.4 H (0-5) Lipase 91 H (11-82) U/L PG Care Time/CCT Total # of Minutes Spent Total Time Spent with Patient: Total time spent is greater than 50% in coordination of care (as documented) at patient's floor/unit and/or counseling patient: Coding Level of Care Code 98453 IN/OBS CONSULT LVL 3,45M Diagnoses Dysphagia, unspecified type R13.10 Dysphagia type: unspecified (1) Dysphagia Dysphagia type: unspecified Qualified Code(s): R13.10 - Dysphagia, unspecified
[2024-03-07 06:34] LABS: Hematocrit (blood only) 44.3 % (42.0-52.0); Mean Corpuscular Hemoglobin 28.9 pg (25.0-34.0); Mean Corpuscular Hgb Conc 33.9 g/dL (32.0-36.0); Mean Corpuscular Volume 85.4 fL (80.0-100.0); Mean Platelet Volume 9.1 fL (9.4-12.4); Platelet Count 299 K/uL (130-400); RDW Coefficient of Variation 13.2 % (11.5-14.5); RDW Standard Deviation 41.6 fL (36.4-46.3); Red Blood Count 5.19 M/uL (4.70-6.10); White Blood Count 8.33 K/ul (4.8-10.8)
[2024-03-07 06:52] LABS: Albumin Globulin Ratio 1.4 (0.9-2); Albumin Level 3.9 gm/dl (3.4-5.0); BUN Creatinine Ratio 11.9 (10-20); Bilirubin,Total 0.8 mg/dl (0.2-1.0); Calcium 9.4 mg/dl (8.6-10.3); Creatinine Clr Calc Pharmacy 91.8 ml/min; Est GFR (African American) 115.9 ml/min; Globulin 2.8 gm/dl (2.5-4.0); Magnesium 2.1 mg/dl (1.7-2.4); Phosphorus 3.8 mg/dl (2.5-4.9); Potassium 4.1 mmol/L (3.5-5.1); Total Protein 6.7 gm/dl (6.0-8.3)
--- NOTE | 2024-03-07 09:02 | Gastroenterology Progress Note ---
Date of Service March 07, 2024 Assessment & Plan (1) Dysphagia: Plan: 53 year old male admitted through the ED w/ reports of solids dysphagia and chest pain, cardiac work up including EKG, High-sensitivity troponin and chest x-ray clear. Maintain NPO status for EGD today. We appreciate assistance in the management of any serological abnormality and corrections to include: hemoglobin >7, INR <2, platelets >50,000, potassium levels >3.5 but <5.3, and sodium levels within 5 points of the reference range prior to endoscopic evaluation. Thank you for allowing us to participate in the care of this patient. Please call with any acute changes, questions or concerns. Please see addendum below with additional recommendation from my supervising physician. Admission and Anticipated Discharge Date Admission Date: March 06, 2024 Supervising Physician Co-Signing Physician Notes I personally saw and examined the patient. I have reviewed the chart and agree with the documentation provided by the AIRPLANE NAVIGATOR including discussion about the assessment, treatment and plan. Briefly, plan for egd for solid phase dyspha andrew. Subjective Pt was seen and evaluated, chart reviewed. No acute events noted overnight. Remains NPO for EGD evaluation today. Review of Systems Review of Systems: All other findings negative except as noted in HPI. Physical Exam Constitutional: WD/WN, vitals as above Respiratory: normal respiratory effort, lungs clear to auscultation Cardiovascular: RRR, no murmur, no edema Gastrointestinal (Abdomen): normal bowel sounds, soft, nontender, no hepatosplenomegaly Skin: no rashes, warm and dry Results & Data Results & Data Vital Signs (Past 12 Hours) Vital Signs Temp Pulse Pulse Resp BP Pulse Ox O2 Del Method 03/07/24 07:44 64 03/07/24 07:38 36.4 C L 69 16 116/80 97 Room Air 03/06/24 22:17 36.7 C 71 18 114/76 96 Room Air Laboratory Results 03/07/24 03/06/24 03/06/24 Range/Units 05:42 16:56 12:17 WBC 8.33 (4.8-10.8) K/ul RBC 5.19 (4.70-6.10) M/uL Hgb 15.0 (14.0-18.0) g/dl Hct 44.3 (42.0-52.0) % MCV 85.4 (80.0-100.0) fL MCH 28.9 (25.0-34.0) pg MCHC 33.9 (32.0-36.0) g/dL RDW Std Deviation 41.6 (36.4-46.3) fL RDW Coeff of Ana 13.2 (11.5-14.5) % Plt Count 299 (130-400) K/uL MPV 9.1 L (9.4-12.4) fL Sodium 139 (136-145) mmol/L Potassium 4.1 (3.5-5.1) mmol/L Chloride 104 (98-107) mmol/L Carbon Dioxide 30 (21-32) mmol/L Anion Gap 5 (3-11) BUN 10 (6-23) mg/dl Creatinine 0.84 (0.6-1.4) mg/dl Est Cr Clr Drug Dosing 91.8 ml/min Est GFR ( Amer) 115.9 ml/min Est GFR (Non-Af Amer) 100.0 ml/min BUN/Creatinine Ratio 11.9 (10-20) Glucose 88 (70-99(Fasting)) mg/dl Calcium 9.4 (8.6-10.3) mg/dl Phosphorus 3.8 (2.5-4.9) mg/dl Magnesium 2.1 (1.7-2.4) mg/dl Total Bilirubin 0.8 (0.2-1.0) mg/dl AST 11 L (13-39) U/L ALT 12 (7-52) U/L Alkaline Phosphatase 46 (34-104) U/L Troponin I High Sens < 2.3 < 2.3 (0-20) pg/ml Total Protein 6.7 (6.0-8.3) gm/dl Albumin 3.9 (3.4-5.0) gm/dl Globulin 2.8 (2.5-4.0) gm/dl Albumin/Globulin Ratio 1.4 (0.9-2) PG Care Time/CCT Total # of Minutes Spent Total Time Spent with Patient: Total time spent is greater than 50% in coordination of care (as documented) at patient's floor/unit and/or counseling patient: Coding Level of Care Code None Diagnoses Dysphagia, unspecified type R13.10 Dysphagia type: unspecified (1) Dysphagia Dysphagia type: unspecified Qualified Code(s): R13.10 - Dysphagia, unspecified
--- NOTE | 2024-03-07 09:31 | Hospitalist Progress Note ---
Date of Service March 07, 2024 Assessment & Plan (1) Dysphagia: (2) Chest pain: Plan Bart Bingham is a 53y/o M with no significant past medical history who presented for evaluation secondary to chest pain and dysphagia. Patient reports history of food getting "stuck" in his esophagus when eating. He mentions this occurs both with solids + liquids and has been ongoing since September. Patient states he has pain when swallowing secondary to the food getting "caught." Reports this painful sensation whilst eating is marked by pressure and tightness in his chest. Dysphagia Chest Pain & Heaviness - Low Concern for ACS Cardiac work-up negative thus far, normal exercise stress echocardiogram; Cardiology recommend initiation of atorvastatin for cardiac risk factor optimization. GI saw and evaluated patient on 03/06 - will proceed with EGD today. Can continue IV Pepcid. DVT Prophylaxis: SCDs - For now. Code Status: FULL CODE PCP: NO PCP Disposition: Observation in Med/Surg + Telemetry, plan for patient to undergo EGD today - will follow results. Patient seen in collaboration with Dr. Edwards. Please see addendum. I spent a total of 35 minutes coordinating, documenting, and providing care for this patient excluding time spent in the performance of separately billed services. This included personally reviewing all current laboratories and imaging studies, medical reconciliation, outpatient chart review and discussion with specialists. This chart was completed in part utilizing Speech Voice Recognition Software. Grammatical errors, random word insertions, pronoun errors, and incomplete sentences are an occasional consequence of this system due to software limitations, ambient noise, and hardware issues. Any formal questions or concerns about the content, text, or information contained within the body of this dictation should be directly addressed to the provider for clarification. Admission and Anticipated Discharge Date Admission Date: March 06, 2024 Supervising Physician Co-Signing Physician Notes I have seen and discussed the case with the collaborating advanced practitioner. I agree with the above PN. I have reviewed and confirmed the patients medical history, the findings on physical examination, and the patients diagnosis and treatment plan with Luz MARK and agree with the information documented. Evaluated at bedside asymptomatic at this time, however, NPO exam with lung CTAB, CV RRR, GI NTND #Dysphagia #Chest pain, low concern for ACS Cards evaluated--stress testing 03/06 negative GI EGD today Rest of plan as above I spent a total of 15 minutes coordinating, documenting, and providing care for this patient excluding time spent in the performance of separately billed services. All of the aforementioned completed outside of collaborating with the assigned advanced practitioner for a full treatment plan. I have reviewed the advanced practitioner's documentation, and I agree with, and take responsibility for the plan of care Subjective Patient seen and examined at bedside in room W454-2. He denies any chest pain, SOB, nausea/vomiting or abdominal pain this morning. He has been NPO since midnight in anticipation for EDG today - hopefully will get done early this afternoon. Review of Systems Review of Systems: At least ten systems reviewed and negative, except as noted in the HPI. Physical Exam Physical Exam: General: WD/WN, vitals as above, NAD, sitting up in bed, pleasant, conversing appropriately. A+Ox3, euthymic affect. HEENT: Normocephalic, atraumatic. PERRL, conjunctivae normal, anicteric sclerae. External ear and nose normal, oropharynx normal. Respiratory: Normal respiratory effort, lungs clear to auscultation, no wheeze, rales, rhonchi. No accessory muscle use. Cardiovascular: Regular rate, rhythm, no murmur, normal peripheral pulses, no BLE edema. Vessels: No JVD. Abdomen/GI: Normal bowel sounds, soft, nontender, no hepatosplenomegaly. Extremities/Musculoskeletal: No cyanosis or clubbing, extremities motor strength intact, moves all extremities without issue. Neurologic: PERRL, EOMI, accommodation nl, no face palsy, no dysarthria, CN's II-XI not formally tested but appear grossly intact bilaterally. Skin: No rashes, normal color, warm/dry. Results & Data Results & Data Vital Signs (Past 12 Hours) Vital Signs Temp Pulse Pulse Resp BP Pulse Ox O2 Del Method 03/07/24 07:44 64 03/07/24 07:38 36.4 C L 69 16 116/80 97 Room Air 03/06/24 22:17 36.7 C 71 18 114/76 96 Room Air Laboratory Results Short CBC 03/07/24 Range/Units 05:42 WBC 8.33 (4.8-10.8) K/ul Hgb 15.0 (14.0-18.0) g/dl Hct 44.3 (42.0-52.0) % Plt Count 299 (130-400) K/uL BMP 03/07/24 05:42 Sodium 139 Potassium 4.1 Chloride 104 Carbon Dioxide 30 BUN 10 Creatinine 0.84 Glucose 88 Calcium 9.4 Liver Function 03/07/24 Range/Units 05:42 Total Bilirubin 0.8 (0.2-1.0) mg/dl AST 11 L (13-39) U/L ALT 12 (7-52) U/L Alkaline Phosphatase 46 (34-104) U/L Albumin 3.9 (3.4-5.0) gm/dl Diagnostic Findings Chest X-Ray 03/05/24 20:36 XR chest 1V portable HISTORY: Chest pain, nonspecific COMPARISON: Chest 07/27/2006. FINDINGS: Calcified granuloma within the left lung base. Otherwise, the lungs are clear. The heart remains top normal in size. No pleural effusions. No pneumothorax. No acute fractures. No evidence for pulmonary edema. IMPRESSION: No acute process. ACT 112: Negative or not required by law. Electronically signed by: Mickey Ceballos M.D. 03/06/2024 7:10 AM Medications Administered Atorvastatin Calcium (Atorvastatin 40 Mg Tab) 40 mg PO QAM [facility] Stop: 04/05/24 08:59 Last Admin: 03/07/24 08:28 Dose: Not Given Documented By: Admin: 03/06/24 10:02 Dose: Not Given Documented By: JUAN Famotidine (Pepcid 20mg Iv Push) 20 mg in 5 mls @ 2.5 mls/min IV Q12H OPAL Stop: 04/05/24 08:59 Last Admin: 03/07/24 08:45 Dose: 2.5 mls/min Documented By: Admin: 03/06/24 21:52 Dose: 2.5 mls/min Documented By: Admin: 03/06/24 09:31 Dose: 2.5 mls/min Documented By: JUAN Discontinued Medications Famotidine (Pepcid 20mg Iv Push) 20 mg in 5 mls @ 2.5 mls/min IV NOW STA Stop: 03/06/24 03:15 Last Admin: 03/06/24 04:00 Dose: 2.5 mls/min Documented By: TORY Sodium Chloride (Nss) 1,000 mls @ 75 mls/hr IV .[id number] OPAL Stop: 03/06/24 16:33 Last Infusion: 03/06/24 15:38 Dose: Infused Documented By: Admin: 03/06/24 04:00 Dose: 75 mls/hr Documented By: TORY (1) Dysphagia Dysphagia type: unspecified Qualified Code(s): R13.10 - Dysphagia, unspecified (2) Chest pain Chest pain type: unspecified Qualified Code(s): R07.9 - Chest pain, unspecified
[2024-03-07] MEDS: SODIUM CHLORIDE 0.9% 500 ML IV SCH (12:54)
--- NOTE | 2024-03-07 13:27 | Anesthesiology Consultation ---
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 specialist initiated Consults Requested none ASA ASA2 Proposed Anesthesia Anesthesia Type: MAC Risk / Benefits Reviewed With: PT / POA / Parent / Guardian, Accepts Plan and Informed Consent Obtained History Surgery Operation Date: 03/07/24 16:55 Proposed Procedures p Esophagogastroduodenoscopy Anita Howard MD Height/Weight Height: 5 ft 6 in Weight: 75.8 kg Allergies Allergy/AdvReac Type Severity Reaction Status Date / Time No Known Allergies Allergy Mild Unverified 03/06/24 01:41 Medications Home Medications Medication Instructions Recorded Confirmed Last Taken cholecalciferol (vitamin D3) 25 0 mcg PO DAILY 03/06/24 03/06/24 Unknown mcg (1,000 unit) tablet (Vitamin D3) omeprazole 20 mg tablet,delayed 0 mg PO DAILY 03/06/24 03/06/24 Unknown release Active Medications Generic Name Dose Route Start Last Admin Trade Name Maykelq PRN Reason Stop Dose Admin Atorvastatin Calcium 40 mg 03/06/24 09:00 03/07/24 08:28 Atorvastatin 40 Mg Tab PO 04/05/24 08:59 Not Given QAM OPAL Famotidine 20 mg in 5 mls @ 2.5 mls/min 03/06/24 09:00 03/07/24 08:45 Pepcid 20mg Iv Push IV 04/05/24 08:59 2.5 mls/min Q12H OPAL Administration Sodium Chloride 500 mls @ 15 mls/hr 03/07/24 07:30 03/07/24 12:54 Nss IV 03/08/24 07:29 15 mls/hr .Q24H OPAL Administration NPO Date Last Intake of Fluids: 03/06/24 Time Last Intake of Fluids: 23:00 Date Last Intake of Solids: 03/06/24 Time Last Intake of Solids: 23:00 Past Medical History Medical History No pertinent past medical history Exercise / Class Metabolic Activity 1 > 8 Run/Swim/Ski/Tennis Past Anesthesia History No Hx of Anesthesia Complications (first time) and No Family Hx of Anesthesia Complications History of PONV No Hx of PONV and No Hx of Motion Sickness Social History Smoking Status: Never smoker Hx Alcohol Use: Yes Alcohol type: beer alcohol intake frequency: holidays/special occasions only Hx Substance Use: No Physical Exam Vital Signs Last Vital Signs Temp 36.6 C 03/07/24 12:43 Pulse 76 03/07/24 12:43 Resp 16 03/07/24 12:43 BP 123/83 03/07/24 12:43 Pulse Ox 97 03/07/24 12:43 O2 Del Method Room Air 03/07/24 12:43 Constitutional no acute distress ENMT Mouth: + dentures; no chipped teeth and no loose teeth Thyromental Distance: > or= 3.5 Finger Breadths Mallampati Class: III Neck normal visual inspection and trachea midline; neck extension not limited Respiratory normal respiratory effort; no respiratory distress Auscultation: lungs clear to auscultation bilaterally; no crackles, no rhonchi and no wheezes Cardiovascular Rate/Rhythm: regular rate and regular rhythm Heart Sounds: no gallop, no murmur and no cardiac rub Musculoskeletal Head/Neck/Chest: full ROM of neck Neurologic moves all extremities and awake Psychiatric Orientation: alert and oriented x 3 Testing Laboratory Results 03/07/24 05:42 03/07/24 05:42 Hemoglobin A1c 5.6 % (4.5-5.6) 03/06/24 04:35 Electrocardiogram Date: 03/07/24 Findings: + NSR @ (64) and + no change from (03/05/24) Chest X-Ray Date: 03/05/24 Findings: + NAD Echocardiogram Date: 03/06/24 EF: 55-60 LV Function: normal RWMA: + none Other Findings: + LVH (mild)
--- NOTE | 2024-03-07 15:13 | GI REPORT ---
[facility] Patient: GILMER GRACE : 1970 Sex at : Male Age: 53 Years Procedure: Upper GI endoscopy Date: 03/07/2024 Attending Physician: Bryan Howard MD Referring MD: Referred Self; Saroj Hopkins Indications: - Dysphagia Medications: - Monitored Anesthesia Care Complications: - No immediate complications. Estimated Blood Loss: - Estimated blood loss was minimal. Procedure: - Prior to the procedure, a History and Physical was performed, and patient medications and allergies were reviewed. The patient's tolerance of previous anesthesia was also reviewed. The risks and benefits of the procedure and the sedation options and risks were discussed with the patient. All questions were answered, and informed consent was obtained. Prior Anticoagulants: The patient has taken no anticoagulant or antiplatelet agents [Days Prior to Procedure]. ASA Grade Assessment: III - A patient with severe systemic disease. After reviewing the risks and benefits, the patient was deemed in satisfactory condition to undergo the procedure. - The egd scope was introduced through the mouth and advanced to the third part of the duodenum. - The upper GI endoscopy was accomplished without difficulty. - The patient tolerated the procedure well. Findings: - A 2 cm hiatal hernia was present. - A medium-sized, ulcerating mass with no bleeding and stigmata of recent bleeding was found in the lower third of the esophagus, 30 to 36 cm from the incisors. The mass was partially obstructing and circumferential. The epicenter of the tumor was in the distal esophagus. Biopsies were taken with a cold forceps for histology. Estimated blood loss was minimal. - The entire examined stomach was normal. - The examined duodenum was normal. Impression: - 2 cm hiatal hernia. 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 Biopsied. - Normal stomach. - Normal examined duodenum. Recommendation: - Await pathology results. - Patient needs Chest, abdomen and pelvis for staging. May need esophageal stent vs peg tube for feeding. - Return to referring physician as previously scheduled. Procedure Code(s): - 63835, Esophagogastroduodenoscopy, flexible, transoral; with biopsy, single or multiple Diagnosis Code(s): - R13.10, Dysphagia, unspecified - K44.9, Diaphragmatic hernia without obstruction or gangrene - D49.0, Neoplasm of unspecified behavior of digestive system CPT(R) - 2023 copyright [employer]. All Rights Reserved. The CPT codes, CCI edits and ICD codes generated are intended as suggestions and were generated based on input data. These codes are preliminary and upon logistics team lead review may be revised to meet current compliance and payer requirements. The provider is responsible for the final determination of appropriate codes, and modifiers. Bryan Howard MD This document has been electronically signed. Note Initiated:03/07/2024 Note Completed:03/07/2024 3:12 PM [id number]
--- NOTE | 2024-03-07 15:26 | Anesthesiology Progress Note ---
Date of Service March 07, 2024 Anesthesia Post Procedure Vital Signs Vital Signs: Temp Pulse Pulse Resp BP Pulse Ox O2 Del Method 03/07/24 15:15 71 16 104/79 94 Room Air 03/07/24 15:00 78 16 110/61 94 Room Air 03/07/24 14:45 36.6 C 84 16 116/72 95 Room Air 03/07/24 12:43 36.6 C 76 16 123/83 97 Room Air 03/07/24 10:57 37.2 C 65 17 121/82 96 Room Air 03/07/24 07:44 64 03/07/24 07:38 36.4 C L 69 16 116/80 97 Room Air 03/06/24 22:17 36.7 C 71 18 114/76 96 Room Air 03/06/24 19:32 36.7 C 77 18 123/83 95 Room Air 03/06/24 16:49 36.7 C 67 18 146/81 H 94 Room Air 03/06/24 16:21 74 03/06/24 15:47 36.8 C 74 16 119/78 98 Room Air Transfer of Care Handoff Completed per policy Notes Mental Status: alert / awake / arousable and participated in evaluation Patient Amnestic to Procedure: Yes Nausea / Vomiting: adequately controlled Pain: adequately controlled Airway Patency, RR, SpO2: stable & adequate BP & HR: stable & adequate Hydration State: stable & adequate Anesthetic Complications: no major complications apparent
[2024-03-07] MEDS: PROPOFOL IV EMULSION 10 MG/ML 20 ML VIAL IV ONE (15:40)
[2024-03-07] MEDS: LIDOCAINE 2% 2 ML VIAL/AMP(20MG/ML) INFIL ONE ×2 (15:40)
--- NOTE | 2024-03-07 17:26 | Electrocardiogram Report ---
Test Reason : Blood Pressure : */* mmHG Vent. Rate : 64 BPM Atrial Rate : 64 BPM P-R Int : 170 ms QRS Dur : 100 ms QT Int : 398 ms P-R-T Axes : 52 42 10 degrees QTcB Int : 410 ms Normal sinus rhythm Normal ECG When compared with ECG of 05-Mar-2024 22:31, No significant change was found Confirmed by Camron Calloway ([id number]) on 03/07/2024 5:26:21 PM Referred By: REFERRED SELF Confirmed By: Camron Calloway
[2024-03-07] MEDS: OPTIRAY 320 100ml IV ONE (17:54)
--- NOTE | 2024-03-07 20:00 | CT Scan Report ---
CT chest diagnostic w con CLINICAL HISTORY: esophageal mass, staging CT CAP TECHNIQUE: Multidetector row helical CT of the chest was performed with intravenous contrast. Coronal and sagittal reformations were obtained. Automated dose lowering techniques and/or adjustment accord ing to patient size were utilized for this exam. CT DOSE: 1803.73 mGy.cm Comparison: Comparison is made to chest radiograph 03/05/2024 FINDINGS: Lungs and pleura: Atelectasis versus scarring is seen in the dependent portions of the lungs. Heart and pericardium: Heart size is normal. No pericardial effusion. Vessels: Unremarkable. . Mediastinum and barbara: Scattered partially calcified lymph nodes are seen. There is thickening of the left side of the distal esophagus. Paraesophageal lymph nodes measure up to 8 mm. Chest wall and lower neck: Unremarkable. Abdomen: For findings below the diaphragm, please refer to CT of the abdomen dated the same. Bones: Degenerative changes in the thoracic spine. IMPRESSION: Distal esophageal mass is seen with subcentimeter paraesophageal lymph nodes. No distant metastases a re seen in the chest. ACT 112: Negative or not required by law. Electronically signed by: Marty Bradley M.D. 03/07/2024 7:58 PM
--- NOTE | 2024-03-07 20:08 | CT Scan Report ---
CT abd pelvis oral and IV con CLINICAL HISTORY: esophageal mass, staging CT CAP TECHNIQUE: Helical axial images of the abdomen and pelvis were obtained and displayed. Automated dose lowering techniques and/or adjustment according to patient size were utilized for this exam. This e xam was performed with intravenous contrast. COMPARISON: None available at the time of this dictation. FINDINGS: Lower chest: For findings above the diaphragm, please see CT chest performed same day. Liver: Unremarkable. No focal lesions are seen. Gallbladder and biliary tree: Cholelithiasis is seen without evidence of cholecystitis. No intra- or extrahepatic biliary ductal dilation. Pancreas: Unremarkable, no focal lesions. Spleen: Splenic cysts are seen. Splenules are noted. Adrenals: Unremarkable. Kidneys and ureters: Renal cysts are seen. Bladder: Unremarkable. Reproductive organs: Unremarkable. Bowel: Diverticulosis is seen without diverticulitis. The appendix is normal. There is a small hiatal hernia. Lymph nodes Retroperitoneal: Multiple lymph nodes are seen near the gastroesophageal junction measuring up to 12 mm in diameter. Retroperitoneal and anne hepatis nodes are nonenlarged. Pelvic: Unremarkable. Mesenteric: Unremarkable. Peritoneum: Normal. Vessels: Unremarkable. Abdominal wall: Unremarkable. Bones: Unremarkable. IMPRESSION: 1. Multiple gastroesophageal junction lymph nodes are enlarged measuring up to 12 mm. Findings are c oncerning for metastatic foci of esophageal cancer. 2. Cholelithiasis without cholecystitis. 3. Diverticulosis without diverticulitis. 4. Additional findings as above. ACT 112: Negative or not required by law. Electronically signed by: Marty Bradley M.D. 03/07/2024 8:06 PM
[2024-03-08 06:39] LABS: Hematocrit (blood only) 44.4 % (42.0-52.0); Hemoglobin 15.1 g/dl (14.0-18.0); Mean Corpuscular Volume 85.2 fL (80.0-100.0); Mean Platelet Volume 9.3 fL (9.4-12.4); Platelet Count 328 K/uL (130-400); RDW Coefficient of Variation 13.2 % (11.5-14.5); RDW Standard Deviation 41.1 fL (36.4-46.3); Red Blood Count 5.21 M/uL (4.70-6.10)
[2024-03-08 07:02] LABS: Albumin Globulin Ratio 1.4 (0.9-2); BUN Creatinine Ratio 14.3 (10-20); Bilirubin,Total 0.6 mg/dl (0.2-1.0); Calcium 9.6 mg/dl (8.6-10.3); Creatinine Clr Calc Pharmacy 84.7 ml/min; Est GFR (African American) 111.1 ml/min; Est GFR (Non-African American) 95.9 ml/min; Globulin 2.8 gm/dl (2.5-4.0); Magnesium 2.2 mg/dl (1.7-2.4); Potassium 4.3 mmol/L (3.5-5.1); Total Protein 6.8 gm/dl (6.0-8.3)
--- NOTE | 2024-03-08 07:16 | Hospitalist Progress Note ---
<Statement entered by Jose Antonio Roca DO - 03/08/24 13:41> I have seen and examined the patient and have discussed the case with the provider above. I have reviewed the advanced practitioner's documentation, and I agree with, and take responsibility for that plan of care. 12 minutes spent at bedside. Daughter and son-in-law at bedside. Patient aware of his suspected diagnosis, working through decision making and working through what his overall goals of care may be and how he would want to pursue further workup. Hematology/oncology consult pending Recommending continuing with just a full liquid diet. Anticipate discharge within next 24 hours with outpatient follow-up Pathology pending from EGD biopsies Further plan of care as outlined below Date of Service March 08, 2024 Assessment & Plan (1) Dysphagia: (2) Esophageal mass: Plan Bart Bingham is a 53y/o M with no significant past medical history who presented for evaluation secondary to chest pain and dysphagia. Patient reports history of food getting "stuck" in his esophagus when eating. He mentions this occurs both with solids + liquids and has been ongoing since September. Patient states he has pain when swallowing secondary to the food getting "caught." Reports this painful sensation whilst eating is marked by pressure and tightness in his chest. Dysphagia Esophageal Mass, C/F Esophageal Cancer [? Metastatic] GI was consulted to evaluate the patient & recommended EGD for further evaluation. Patient underwent EGD on 03/07 that revealed the following findings: i. A 2cm hiatal hernia. ii. 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 Biopsy was taken during EGD, currently awaiting pathology results - following closely. Recommendation from GI was to obtain a CTAP for staging; Patient may require an esophageal stent vs. peg tube for feeding as per GI. Patient is tolerating full liquid diet at this time - will continue. Staging CTAP w/ contrast performed 03/07 revealed the following findings: i. Multiple enlarged gastroesophageal junction lymph nodes measuring up to 12mm. ii. Findings are concerning for metastatic foci of esophageal cancer. Chest CT w/ contrast performed 03/07 revealed the following findings: i. Distal esophageal mass with subcentimeter paraesophageal lymph nodes measuring up to 8mm. ii. No distant metastases seen within the chest. Spoke with Dr. Price via [employer] to make him aware of the patient (03/08) - oncology consult placed. He will be over to see the patient today. Patient is aware that Dr. Price will be over to meet with him. Chest Pain & Heaviness - Low Concern for ACS Cardiac work-up negative thus far, normal exercise stress echocardiogram. Cardiology recommend initiation of atorvastatin for cardiac risk factor optimization. DVT Prophylaxis: SCDs - For now. Code Status: FULL CODE PCP: NO PCP * Patient is a member of the [employer]. Upon discussion with the patient on 03/07, he declined insurance coverage. Patient reports that the [employer] and the [employer] he belongs to will assist in covering his medical costs. Case management is aware of the situation. Disposition: Admitted in PCU/Telemetry Patient seen in collaboration with Dr. Roca. Please see addendum. I spent a total of 50 minutes coordinating, documenting, and providing care for this patient excluding time spent in the performance of separately billed services. This included personally reviewing all current laboratories and imaging studies, medical reconciliation, outpatient chart review and discussion with specialists. This chart was completed in part utilizing Speech Voice Recognition Software. Grammatical errors, random word insertions, pronoun errors, and incomplete sentences are an occasional consequence of this system due to software limitations, ambient noise, and hardware issues. Any formal questions or concerns about the content, text, or information contained within the body of this dictation should be directly addressed to the provider for clarification. Admission and Anticipated Discharge Date Admission Date: March 06, 2024 Subjective Patient seen and examined at bedside in room W454-2. Made patient aware of EGD and staging CTAP findings. Surgical pathology still pending - made patient aware of this as well. Endorses that he is tolerating liquid/full liquid diet with some occasional discomfort whilst swallowing. Patient is eager to get home as soon as he can. I spoke with Dr. Price via [employer] - he will be over to see the patient today. Made patient aware that Dr. Price would be over to see him to discuss the possible treatment options moving forward given high suspicion for cancer. Review of Systems Review of Systems: At least ten systems reviewed and negative, except as noted in the HPI. Physical Exam Physical Exam: General: WD/WN, vitals as above, NAD, sitting up in bed, very pleasant, conversing appropriately. A+Ox3, euthymic affect. HEENT: Normocephalic, atraumatic. PERRL, conjunctivae normal, anicteric sclerae. External ear and nose normal, oropharynx normal. Respiratory: Normal respiratory effort, lungs clear to auscultation, no wheeze, rales, rhonchi. No accessory muscle use. Cardiovascular: Regular rate, rhythm, no murmur, normal peripheral pulses, no BLE edema. Vessels: No JVD. Abdomen/GI: Normal bowel sounds, soft, nontender, no hepatosplenomegaly. Extremities/Musculoskeletal: No cyanosis or clubbing, extremity motor strength intact, moves all extremities without issue. Neurologic: EOMI, accommodation nl, no face palsy, no dysarthria, CN's II-XI not formally tested but appear grossly intact bilaterally. Skin: No rashes, normal color, warm/dry. Results & Data Results & Data Vital Signs (Past 12 Hours) Vital Signs Temp Pulse Pulse Resp BP Pulse Ox O2 Del Method 03/08/24 05:49 36.7 C 63 18 109/73 95 Room Air 03/08/24 04:00 03/07/24 23:34 36.7 C 74 18 118/74 96 Room Air 03/07/24 23:05 75 03/07/24 19:46 37.1 C 80 18 121/85 95 Room Air O2 Del Method 03/08/24 05:49 03/08/24 04:00 Room Air 03/07/24 23:34 03/07/24 23:05 03/07/24 19:46 Laboratory Results Short CBC 03/08/24 Range/Units 05:42 WBC 8.40 (4.8-10.8) K/ul Hgb 15.1 (14.0-18.0) g/dl Hct 44.4 (42.0-52.0) % Plt Count 328 (130-400) K/uL BMP 03/08/24 05:42 Sodium 139 Potassium 4.3 Chloride 104 Carbon Dioxide 28 BUN 13 Creatinine 0.91 Glucose 93 Calcium 9.6 Liver Function 03/08/24 Range/Units 05:42 Total Bilirubin 0.6 (0.2-1.0) mg/dl AST 12 L (13-39) U/L ALT 13 (7-52) U/L Alkaline Phosphatase 49 (34-104) U/L Albumin 4.0 (3.4-5.0) gm/dl Diagnostic Findings Chest X-Ray 03/05/24 20:36 XR chest 1V portable HISTORY: Chest pain, nonspecific COMPARISON: Chest 07/27/2006. FINDINGS: Calcified granuloma within the left lung base. Otherwise, the lungs are clear. The heart remains top normal in size. No pleural effusions. No pneumothorax. No acute fractures. No evidence for pulmonary edema. IMPRESSION: No acute process. ACT 112: Negative or not required by law. Electronically signed by: Mickey Ceballos M.D. 03/06/2024 7:10 AM Abdomen/Pelvis CT 03/07/24 14:48 CT abd pelvis oral and IV con CLINICAL HISTORY: esophageal mass, staging CT CAP TECHNIQUE: Helical axial images of the abdomen and pelvis were obtained and d isplayed. Automated dose lowering techniques and/or adjustment according to patient size were utilized for this exam. This exam was performed with intravenous contrast. COMPARISON: None available at the time of this dictation. FINDINGS: Lower chest: For findings above the diaphragm, please see CT chest performed same day. Liver: Unremarkable. No focal lesions are seen. Gallbladder and biliary tree: Cholelithiasis is seen without evidence of cholecystitis. No intra- or extrahepatic biliary ductal dilation. Pancreas: Unremarkable, no focal lesions. Spleen: Splenic cysts are seen. Splenules are noted. Adrenals: Unremarkable. Kidneys and ureters: Renal cysts are seen. Bladder: Unremarkable. Reproductive organs: Unremarkable. Bowel: Diverticulosis is seen without diverticulitis. The appendix is normal. There is a small hiatal hernia. Lymph nodes Retroperitoneal: Multiple lymph nodes are seen near the gastroesophageal junction measuring up to 12 mm in diameter. Retroperitoneal and anne hepatis nodes are nonenlarged. Pelvic: Unremarkable. Mesenteric: Unremarkable. Peritoneum: Normal. Vessels: Unremarkable. Abdominal wall: Unremarkable. Bones: Unremarkable. IMPRESSION: 1. Multiple gastroesophageal junction lymph nodes are enlarged measuring up to 12 mm. Findings are concerning for metastatic foci of esophageal cancer. 2. Cholelithiasis without cholecystitis. 3. Diverticulosis without diverticulitis. 4. Additional findings as above. ACT 112: Negative or not required by law. Electronically signed by: Marty Bradley M.D. 03/07/2024 8:[address] 03/07/24 14:48 CT chest diagnostic w con CLINICAL HISTORY: esophageal mass, staging CT CAP TECHNIQUE: Multidetector row helical CT of the chest was performed with intravenous contrast. Coronal and sagittal reformations were obtained. Automated dose lowering techniques and/or adjustment according to patient size were utilized for this exam. CT DOSE: 1803.73 mGy.cm Comparison: Comparison is made to chest radiograph 03/05/2024 FINDINGS: Lungs and pleura: Atelectasis versus scarring is seen in the dependent portions of the lungs. Heart and pericardium: Heart size is normal. No pericardial effusion. Vessels: Unremarkable. . Mediastinum and barbara: Scattered partially calcified lymph nodes are seen. There is thickening of the left side of the distal esophagus. Paraesophageal lymph nodes measure up to 8 mm. Chest wall and lower neck: Unremarkable. Abdomen: For findings below the diaphragm, please refer to CT of the abdomen dated the same. Bones: Degenerative changes in the thoracic spine. IMPRESSION: Distal esophageal mass is seen with subcentimeter paraesophageal lymph nodes. No distant metastases are seen in the chest. ACT 112: Negative or not required by law. Electronically signed by: Marty Bradley M.D. 03/07/2024 7:58 PM Medications Administered Atorvastatin Calcium (Atorvastatin 40 Mg Tab) 40 mg PO QAM OPAL Stop: 04/05/24 08:59 Last Admin: 03/07/24 08:28 Dose: Not Given Documented By: Admin: 03/06/24 10:02 Dose: Not Given Documented By: JUAN Famotidine (Pepcid 20mg Iv Push) 20 mg in 5 mls @ 2.5 mls/min IV Q12H OPAL Stop: 04/05/24 08:59 Last Admin: 03/07/24 20:40 Dose: 2.5 mls/min Documented By: Admin: 03/07/24 08:45 Dose: 2.5 mls/min Documented By: Admin: 03/06/24 21:52 Dose: 2.5 mls/min Documented By: Admin: 03/06/24 09:31 Dose: 2.5 mls/min Documented By: JUAN Sodium Chloride (Nss) 500 mls @ 15 mls/hr IV .Q24H OPAL Stop: 03/08/24 07:29 Last Infusion: 03/07/24 15:40 Dose: Infused Documented By: Admin: 03/07/24 12:54 Dose: 15 mls/hr Documented By: AMANDA Discontinued Medications Famotidine (Pepcid 20mg Iv Push) 20 mg in 5 mls @ 2.5 mls/min IV NOW STA Stop: 03/06/24 03:15 Last Admin: 03/06/24 04:00 Dose: 2.5 mls/min Documented By: TORY Sodium Chloride (Nss) 1,000 mls @ 75 mls/hr IV .[id number] OPAL Stop: 03/06/24 16:33 Last Infusion: 03/06/24 15:38 Dose: Infused Documented By: Admin: 03/06/24 04:00 Dose: 75 mls/hr Documented By: TORY Ioversol (Optiray 320 100ml) 90 ml IV ONCE ONE Stop: 03/07/24 17:54 Last Admin: 03/07/24 17:54 Dose: 90 ml Documented By: DOMO Lidocaine HCl (Lidocaine 2% 2 Ml Vial/Amp(20mg/Ml)) Confirm Administered Dose 2 ml INFIL .STK-MED ONE Stop: 03/07/24 14:14 Last Admin: 03/07/24 15:40 Dose: Not Given Documented By: FEDERICO Lidocaine HCl (Lidocaine 2% 2 Ml Vial/Amp(20mg/Ml)) Confirm Administered Dose 2 ml INFIL .STK-MED ONE Stop: 03/07/24 14:31 Last Admin: 03/07/24 15:40 Dose: Not Given Documented By: FEDERICO Propofol (Propofol Iv Emulsion 10 Mg/Ml 20 Ml Vial) Confirm Administered Dose 200 mg IV .STK-MED ONE Stop: 03/07/24 14:14 Last Admin: 03/07/24 15:40 Dose: Not Given Documented By: FEDERICO (1) Dysphagia Dysphagia type: unspecified Qualified Code(s): R13.10 - Dysphagia, unspecified
--- NOTE | 2024-03-08 10:45 | Gastroenterology Progress Note ---
Date of Service March 08, 2024 Assessment & Plan (1) Dysphagia: Plan: 53 year old male admitted through the ED w/ reports of solids dysphagia and chest pain, cardiac work up including EKG, High-sensitivity troponin and chest x-ray, stress echo negative. Unfortunately, EGD on 03/07/24 revealed a partially obstructing, likely malignant esophageal tumor in the lower third of the esophagus. Biopsies are pending, CT CAP reveal multiple gastroesophageal junction lymph nodes are enlarged measuring up to 12 mm but no distant metastases are seen in the chest. Follow esophageal biopsies Full liquid diet as tolerated Encouraged boost/ensure protein supplementation Oncology evaluation Expedited outpatient thoracic medicine evaluation will need to be arranged by the hospitalist service Reviewed worrisome signs of symptoms of impaction and GI bleeding and to seek immediate ER evaluation if these conditions were to develop in the interim I spent a total of 40 minutes on the date of service in review of patient's record, and previously obtained information in person and appropriate medical visit, discussion and education of plan, with patient and/or caregiver, placing orders for tests/referral/procedures as medically necessary and documentation of pertinent clinical information in patient's medical records for their visit today.Thank you for allowing us to participate in the care of this patient. Please call with any acute changes, questions or concerns. Please see addendum below with additional recommendation from my supervising physician. Admission and Anticipated Discharge Date Admission Date: March 06, 2024 Supervising Physician Co-Signing Physician Notes I personally saw and examined the patient. I have reviewed the chart and agree with the documentation provided by the [employer] OPERATOR including discussion about the assessment, treatment and plan. CT scan: Multiple gastroesophageal junction lymph nodes are enlarged measuring up to 12 mm. Findings are concerning for metastatic foci of esophageal cancer.Cholelithiasis without cholecystitis. Pathology is still pending. Needs oncology and cardiothoracic input. Outpt EUS. For his nutrition, liquid diet for now. Suggest peg tube > stent if surgery not an option upfront. Subjective Pt was seen and evaluated, chart reviewed. Reviewed the EGD findings, CT CAP findings. Questions answered. Endorses tolerating liquid/full liquid diet but occasional discomfort with full liquid diet. No impactions on liquid/full liquid diet. Denies nausea/vomiting. Esophageal mass bx: pending EGD 2023: A 2 cm hiatal hernia was present. - A medium-sized, ulcerating mass with no bleeding and stigmata of recent bleeding was found in the lower third of the esophagus, 30 to 36 cm from the incisors. The mass was partially obstructing and circumferential. The epicenter of the tumor was in the distal esophagus. Biopsies were taken with a cold forceps for histology. Estimated blood loss was minimal. - The entire examined stomach was normal. - The examined duodenum was normal. CT Chest 2023: Distal esophageal mass is seen with subcentimeter paraesophageal lymph nodes. No distant metastases are seen in the chest. CT ABD/Pelvis 2023: Multiple gastroesophageal junction lymph nodes are enlarged measuring up to 12 mm. Findings are concerning for metastatic foci of esophageal cancer.Cholelithiasis without cholecystitis. Diverticulosis without diverticulitis. Additional findings as above. Review of Systems Review of Systems: All other findings negative except as noted in HPI. Physical Exam Constitutional: WD/WN, vitals as above Respiratory: normal respiratory effort, lungs clear to auscultation Cardiovascular: RRR, no murmur, no edema Gastrointestinal (Abdomen): normal bowel sounds, soft, nontender, no hepatosplenomegaly Skin: no rashes, warm and dry Results & Data Results & Data Vital Signs (Past 12 Hours) Vital Signs Temp Pulse Pulse Resp BP BP Pulse Ox 03/08/24 07:48 36.7 C 69 16 133/84 96 03/08/24 05:49 36.7 C 63 18 109/73 95 03/08/24 04:00 03/07/24 23:34 36.7 C 74 18 118/74 96 03/07/24 23:05 75 O2 Del Method O2 Del Method 03/08/24 07:48 Room Air 03/08/24 05:49 Room Air 03/08/24 04:00 Room Air 03/07/24 23:34 Room Air 03/07/24 23:05 Laboratory Results 03/08/24 Range/Units 05:42 WBC 8.40 (4.8-10.8) K/ul RBC 5.21 (4.70-6.10) M/uL Hgb 15.1 (14.0-18.0) g/dl Hct 44.4 (42.0-52.0) % MCV 85.2 (80.0-100.0) fL MCH 29.0 (25.0-34.0) pg MCHC 34.0 (32.0-36.0) g/dL RDW Std Deviation 41.1 (36.4-46.3) fL RDW Coeff of Ana 13.2 (11.5-14.5) % Plt Count 328 (130-400) K/uL MPV 9.3 L (9.4-12.4) fL Sodium 139 (136-145) mmol/L Potassium 4.3 (3.5-5.1) mmol/L Chloride 104 (98-107) mmol/L Carbon Dioxide 28 (21-32) mmol/L Anion Gap 7 (3-11) BUN 13 (6-23) mg/dl Creatinine 0.91 (0.6-1.4) mg/dl Est Cr Clr Drug Dosing 84.7 ml/min Est GFR ( Amer) 111.1 ml/min Est GFR (Non-Af Amer) 95.9 ml/min BUN/Creatinine Ratio 14.3 (10-20) Glucose 93 (70-99(Fasting)) mg/dl Calcium 9.6 (8.6-10.3) mg/dl Phosphorus 5.0 H D (2.5-4.9) mg/dl Magnesium 2.2 (1.7-2.4) mg/dl Total Bilirubin 0.6 (0.2-1.0) mg/dl AST 12 L (13-39) U/L ALT 13 (7-52) U/L Alkaline Phosphatase 49 (34-104) U/L Total Protein 6.8 (6.0-8.3) gm/dl Albumin 4.0 (3.4-5.0) gm/dl Globulin 2.8 (2.5-4.0) gm/dl Albumin/Globulin Ratio 1.4 (0.9-2) PG Care Time/CCT Total # of Minutes Spent Total Time Spent with Patient: Total time spent is greater than 50% in coordination of care (as documented) at patient's floor/unit and/or counseling patient: Coding Level of Care Code 03823 SUB INP/OBS CARE 2/35MIN Diagnoses Dysphagia, unspecified type R13.10 Dysphagia type: unspecified (1) Dysphagia Dysphagia type: unspecified Qualified Code(s): R13.10 - Dysphagia, unspecified
--- NOTE | 2024-03-08 16:58 | Oncology Consultation ---
Date of Consultation March 08, 2024 Assessment & Plan (1) Esophageal mass: at this point we will wait for the final pathology result. The patient will be set up in medical oncology clinic to discuss prognosis, treatment as we think we are dealing with locally advanced esophageal cancer. Given the treatment options which would most likely include either neoadjuvant chemotherapy followed by surgery or the other option would be concurrent chemoradiation. He will need a PET CT scan if he find distant metastatic disease on the PET scan then he will just be a candidate for palliative systemic chemotherapy. Our office staff has been informed that the patient will follow-up. We will schedule an outpatient PET CT scan. Plan Thank you for this interesting oncological consult. A total of 60 minutes were spent in counseling, coordination of care, review of prior records. History of Present Illness Reason for Consultation: esophageal cancer Attending Physician: Jose Antonio Roca, DO History of Present Illness the patient is a very pleasant 53-year-old man who has not been to physicians for a very long time, came to the hospital with chest pain. He was having some heaviness in the left side. He was also having food get stuck in esophagus since September. He decided to come to the ER. Reported no fever or chills. In the ER he had a CT of the chest abdomen pelvis performed on 03/07/2024 which revealed multiple gastroesophageal nodes, enlarged measuring up to 12 mm, d iverticuli, cholelithiasis without cholecystitis. Retroperitoneal lymph nodes are nonenlarged. CT of the chest did not reveal any intrathoracic metastatic disease. The patient had an upper GI endoscopy performed on 03/06/2024 which revealed medium sized ulcerating mass with no recent stigmata of bleeding, partially obstructing and circumferential epicenter was distal esophagus. Biopsies are still pending. Medical oncology has been consulted to assist in management of this patient with esophageal cancer. Today he is doing well. Reports no fever chills or night sweats. CT chest abdomen pelvis, 03/07/2024: MPRESSION: 1. Multiple gastroesophageal junction lymph nodes are enlarged measuring up to 12 mm. Findings are concerning for metastatic foci of esophageal cancer. 2. Cholelithiasis without cholecystitis. 3. Diverticulosis without diverticulitis. 4. Additional findings as above. Distal esophageal mass is seen with subcentimeter paraesophageal lymph nodes. No distant metastases are seen in the chest. upper GI endoscopy, 03/06/2024: Findings: - A 2 cm hiatal hernia was present. - A medium-sized, ulcerating mass with no bleeding and stigmata of recent bleeding was found in the lower third of the esophagus, 30 to 36 cm from the incisors. The mass was partially obstructing and circumferential. The epicenter of the tumor was in the distal esophagus. Biopsies were taken with a cold forceps for histology. Estimated blood loss was minimal. - The entire examined stomach was normal. - The examined duodenum was normal. Allergies Allergy/AdvReac Type Severity Reaction Status Date / Time No Known Allergies Allergy Mild Unverified 03/06/24 01:41 Home Medications Medication Instructions Recorded Confirmed Type lansoprazole 30 mg delayed 30 mg PO Q12H #60 tabs 03/08/24 Rx release,disintegrating tablet (Prevacid SoluTab) Patient History Medical History No pertinent past medical history Social History Smoking Status: Never smoker Hx Alcohol Use: Yes Alcohol type: beer Hx Substance Use: No Preferred Language: Nepali Communication Ability: Effective Special Needs Babysitter Required: No Beliefs That Will Affect Care: None Current Living Situation: Family Feels Safe at Home: Yes Assistive Devices: None Review of Systems Review of Systems: All systems reviewed & are unremarkable except as noted in HPI & below Constitutional: as per Subjective / HPI Eyes: as per Subjective / HPI Ear, Nose, Mouth, Throat: as per Subjective / HPI Respiratory: as per Subjective / HPI Cardiovascular: as per Subjective / HPI Gastrointestinal: as per Subjective / HPI Genitourinary: + as per Subjective / HPI Musculoskeletal: as per Subjective / HPI Integumentary: as per Subjective / HPI Neurologic: as per Subjective / HPI Psychiatric: as per Subjective / HPI Endocrine: as per Subjective / HPI Hematologic / Lymphatic: as per Subjective / HPI Allergy / Immunological: as per Subjective / HPI Physical Exam Constitutional: WD/WN, vitals as above Eyes: PERRL, conjunctivae normal, anicteric sclerae ENMT: external ear and nose normal, oropharynx normal Neck: trachea midline, no thyromegaly Respiratory: normal respiratory effort, lungs clear to auscultation Cardiovascular: RRR, no murmur, no edema Gastrointestinal (Abdomen): normal bowel sounds, soft, nontender, no hepatosplenomegaly Musculoskeletal: no cyanosis or clubbing, extremities motor strength 5/5 Skin: no rashes, warm and dry Neurologic: patellar DTR's 2+ bilat, sensation intact Psychiatric: A+Ox3, euthymic affect Results & Data Vital Signs (Past 12 Hours) Vital Signs Temp Pulse Pulse Resp BP BP Pulse Ox 03/08/24 14:40 36.5 C 75 17 126/84 95 03/08/24 13:01 63 03/08/24 10:41 36.3 C L 82 16 129/80 96 03/08/24 07:48 36.7 C 69 16 133/84 96 03/08/24 05:49 36.7 C 63 18 109/73 95 O2 Del Method 03/08/24 14:40 Room Air 03/08/24 13:01 03/08/24 10:41 Room Air 03/08/24 07:48 Room Air 03/08/24 05:49 Room Air
--- NOTE | 2024-03-08 17:49 | Discharge Summary ---
Discharge Summary Date of Service March 08, 2024 Principal Dx & Hospital Course #1 = Principal Diagnosis (1) Esophageal mass: (2) Dysphagia: Plan Patient was cared for in the hospital. Patient initially presented with complaints of chest pain. Cardiology consultation was obtained. Patient underwent echocardiogram and echo stress cardiac which did not show any evidence of coronary artery disease. GI consultation was obtained. Patient underwent EGD. 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 Surveillance CAT scans Did show some paraesophageal lymph nodes. Patient's diet was advanced. He is able to tolerate a full liquid diet. He was seen by oncology who will arrange for expedited outpatient follow-up and PET scanning. Will also coronary outpatient thoracic surgery consultation. Patient will then subsequently be discharged home to discuss with his family his overall goals of care. He will follow-up with his outpatient providers. He understands need for his change in his diet. Also he understands he may need to eat more frequently to get enough calories. Family is at the bedside at the time of discharge understanding need for follow-up and plans for discharge. Further plans of care is coordinated outpatient. Notes For Next Care Provider Follow-up with oncology Follow-up with thoracic surgery if patient desires Medication Changes From Visit Omeprazole changed to Prevacid ODT for minimizing risk of pills being caught in his esophagus Admission HPI Per Admitting Provider 53-year-old male with no significant past medical history and not been to doctors for long time presents with chest pain. Patient states he is having chest pain for about a week. Feeling of chest heaviness and some left sided chest pain. Since September he is also having food getting stuck in the esophagus. Today after lunch he felt food got stuck and drank water but still felt food was in the esophagus as he had some back discomfort and since then is having left-sided chest pain and heaviness and was not getting better so he c julien to the ER today. Currently chest discomfort is better but still there. Denies any shortness of breath. Denies any headache. No fevers. No cough. No runny nose or sore throat. No nausea. No abdominal pain. Normal bowel and bladder movements. Patient states at work in this summer one time when he was climbing a hill felt some chest heaviness but it was only one episode. Currently resting comfortably and hemodynamically stable. Past medical history. None as per patient. Past surgical history. None as per patient Social history. No smoking. No alcohol. No drug use as per patient. Family history. No significant family history as per patient. Admission Exam Per Admitting Provider See H&P Discharge Exam Constitutional: Alert HEENT: Mucous membranes moist. Lungs: Clear to auscultation, decreased, no wheezes rales or rhonchi CV: S1-S2, regular Abdomen: Soft, nontender, nondistended Extremities: No significant edema Neuro: No focal deficits Psych: Cooperative, normal mood Updated Medication List Medication Instructions Recorded Confirmed Type lansoprazole 30 mg delayed 30 mg PO Q12H #60 tabs 03/08/24 Rx release,disintegrating tablet (Prevacid SoluTab) Hospital Stay Data Consultations 03/06/24 00:18 ED Decision to Admit Stat 03/06/24 08:00 Consult Cardiology Routine Consult Gastroenterology Routine 03/08/24 09:06 Consult Oncology Routine Procedures Performed Operation Date: 03/07/24 16:55 Actual Procedures p EGD Biopsy Cytology - Bryan Howard MD Diagnostic Imagining Performed 03/07/24 14:48 CT Abd and Pelvis [CT abd pelvis oral and IV con] Routine CT chest with contrast [CT chest diagnostic w con] Routine Reviewed imaging, laboratory and diagnostic studies. Pertinent findings as below. CT of the abdomen showed some gastro esophageal nodes Stress echocardiogram showed no evidence of ischemia Echocardiogram showed normal ejection fraction 55 to 60% with no wall motion abnormalities EGD report I refer you to the printed report for details, large ulcerating esophageal mass noted Pending Results Patient Have Any Pending Studies at Discharge: Yes Discharge Instructions Given to Patient (Per Discharging Provider) Mr. Bingham: You were admitted to the hospital for evaluation of chest pain and dysphagia [trouble swallowing]. Total Time Total Time Spent Total Time Spent (In Minutes): 45
== END 2024-03-08 18:06 | disposition home or self-care (01) | DRG 376 ==
LOC: EDINP 20:13 → ED 20:13 → SUATTDRO 03-06 02:26 → EDINP 03-06 03:15 → 4W 03-06 16:08